=== PATIENT | female | born 1930 | race Hispanic/Latino ===

== ENCOUNTER 2017-05-27 08:58 | Inpatient (IN) | payer OTHER ==
--- OUTSIDE RECORDS SUMMARY | 2017-05-27 09:00 | XMS REPORT | Clinical Summary ---
:1930 Author Organization [facility] Address [address] [place] [id number] Care Team Providers Name Role Phone Asked, No Pcp Primary Care Provider Unavailable Allergies Not on File Current Medications Prescription Sig. Disp. Refills Start Date End Date Status traMADol (ULTRAM) Take 1 tablet 40 tablet 0 11/17/2016 11/27/2016 50 mg tablet (50 mg total) by mouth every 6 (six) hours as needed for moderate pain for up to 10 days. zolpidem (AMBIEN) Take 0.5 40 tablet 0 11/17/2016 12/22/2016 Discontinued 10 mg tablet tablets (5 mg total) by mouth nightly as needed for sleep for up to 40 days. zolpidem (AMBIEN) 5 Take 1 tablet 30 tablet 0 12/22/2016 01/21/2017 MG tablet (5 mg total) by mouth nightly as needed for sleep for up to 30 days. Active Problems Problem Noted Date Age-related osteoporosis with current pathological fracture 12/23/2016 Thoracic compression fracture, closed, initial encounter 12/01/2016 Acute low back pain 11/18/2016 Closed displaced fracture of surgical neck of right humerus 11/18/2016 Thoracic compression fracture 11/18/2016 Encounters Date Type Specialty Care Team Description 01/17/2017 Orders Only Access Marshall Camacho MD 12/22/2016 Office Visit Orthopedic Surgery Marshall Camacho, Closed displaced fracture of surgical neck of right humerus, unspecified fracture morphology, initial encounter (Primary Dx); Thoracic compression fracture, closed, initial encounter; Age-related osteoporosis with current pathological fracture with routine healing, subsequent encounter 12/22/2016 Telephone Orthopedic Surgery Daniel, Closed compression fracture of thoracic vertebra with routine healing, subsequent encounter ( Primary Dx); CHHAYA Mi Other closed displaced fracture of proximal end of right humerus with routine healing, subsequent encounter; Physical deconditioning 12/13/2016 Telephone Orthopedic Surgery Hiwot Sanchez RN 12/13/2016 Telephone Orthopedic Surgery Shira Camacho RN 12/01/2016 Office Visit Orthopedic Surgery Marshall Camacho, Closed displaced fracture of surgical neck of right humerus, unspecified fracture morphology, initial encounter (Primary Dx); Thoracic compression fracture, closed, initial encounter; Physical deconditioning 11/17/2016 Hospital Encounter Marshall Serra MD 11/17/2016 Hospital Encounter Marshall Serra MD 11/17/2016 Hospital Encounter Marshall Serra MD 11/17/2016 Hospital Encounter Marshall Serra MD 11/17/2016 Hospital Encounter Marshall Serra MD 11/17/2016 Hospital Encounter Marshall Serra MD 11/17/2016 Hospital Encounter Marshall Serra MD 11/17/2016 Office Visit Orthopedic Surgery Marshall Camacho, Acute low back pain, unspecified back pain laterality, with sciatica presence unspecified ( Primary Dx); Closed displaced fracture of surgical neck of right humerus, unspecified fracture morphology, initial encounter; Thoracic compression fracture, closed, initial encounter 11/17/2016 Ancillary Orders Marshall Serra MD 11/17/2016 Documentation Orthopedic Surgery Trinidad Weiner LPN after 05/26/2016 Social History Tobacco Use Types Packs/Day Years Used Date Never Assessed Sex Assigned at Date Recorded Not on file Last Filed Vital Signs Vital Sign Reading Time Taken Blood Pressure - - Pulse - - Temperature - - Respiratory Rate - - Oxygen Saturation - - Inhaled Oxygen Concentration - - Weight 33.3 kg (73 lb 8 oz) 11/17/2016 3:06 PM CDT Height 147.3 cm (4' 10") 11/17/2016 3:06 PM CDT Body Mass Index 15.36 11/17/2016 3:06 PM CDT Plan of Treatment Health Maintenance Due Date Last Done Comments ZOSTER VACCINE 1990 PNEUMOCOCCAL POLYSACCHARIDE VACCINE AGE 65 AND OVER 07/06/1995 PNEUMOCOCCAL-13 07/06/1995 INFLUENZA VACCINE 09/28/2016 Results Miscellaneous Imaging Result (01/17/2017) Specimen Performing Laboratory Blood XR Spine External Study (11/08/2016 6:25 AM) Specimen Performing Laboratory [facility] [address] [place] [address] Narrative This exam was not acquired at a [facility] facility and has not been interpreted by a [facility] Provider.The exam was imported into our imaging system for comparisons purposes. CT Spine External Study (11/07/2016 5:16 PM)Only the most recent of3 resultswithin the time period is included. Specimen Performing Laboratory [facility] [address] [place] [address] Narrative This exam was not acquired at a [facility] facility and has not been interpreted by a [facility] Provider.The exam was imported into our imaging system for comparisons purposes. XR Upper Extremity External Study (11/07/2016 3:28 PM)Only the most recent of2 resultswithin the time period is included. Specimen Performing Laboratory [facility] [address] [place] [address] Narrative This exam was not acquired at a [facility] facility and has not been interpreted by a [facility] Provider.The exam was imported into our imaging system for comparisons purposes. XR Chest External Study (11/07/2016 3:28 PM) Specimen Performing Laboratory [facility] [address] [place] [address] Narrative This exam was not acquired at a [facility] facility and has not been interpreted by a [facility] Provider.The exam was imported into our imaging system for comparisons purposes. after 05/26/2016 Insurance Payer Benefit Plan / Group Subscriber ID Type Phone Address MEDICARE MEDICARE PART A AND B xxxxxxxxxx Medicare [place], [place] [employer] SUPPLEMENT xxxxxxxxxxxx Commercial [phone] [address]
[2017-05-27 09:39] LABS: Absolute Lymphocytes (CBC) 3.9 K/uL (0.7-4.9); Absolute Monocytes 0.8 K/uL (0.1-1.3); Absolute Neutrophil 5.5 K/uL (1.8-8.0); Basophils % 0.8 % (0-1.3); Eosinophils % 5.1 % (0-4.4); Hematocrit 31.9 % (36.0-45.0); Lymphocytes % 35.8 % (15.3-44.8); MCH 27.3 pg (27.0-35.0); MCV 81.9 fL (80-100); MPV 7.9 fL (7.6-11.3); Monocytes % 7.3 % (3.3-12.3)
--- NOTE | 2017-05-27 09:41 | RAD REPORT ---
EXAM DESCRIPTION: CT - CTHCSPWOC - 05/27/2017 9:28 am CLINICAL HISTORY: Syncope, fall, head and neck injury COMPARISON: CT head and neck October 2016 TECHNIQUE: Axial 5 mm thick images of the head were obtained. Axial 2 mm thick images of the cervic al spine were obtained with sagittal and coronal reconstruction images generated and reviewed. All CT scans are performed using dose optimization technique as appropriate and may include automated exposure control or mA/KV adjustment according to patient size. FINDINGS: No intracranial hemorrhage, mass, edema or acute intracranial finding. No acute cortical based infarc tion. Advanced atrophy and chronic ischemic changes are present. Ventricular size is in proportion. A rterial and physiologic calcifications are present. No extra-axial fluid collections. Mastoid air ric ls are clear. Chronic right-sided sphenoid sinusitis stable from prior imaging. Remaining paranasal s inuses as imaged are unremarkable. No globe or orbit abnormality seen. Cervical bodies are normal in height. There is a slight retrolisthesis of C4 relative to C2 and C3. M ild facet joint degenerative changes are present. No pathologic or posttraumatic etiology for the sub luxation. C4-5 disc space narrowing is present. No other significant disc space narrowing. No fractur e or acute bony abnormality. Central canal detail is inherently limited. No paraspinal mass or hematoma. IMPRESSION: Patient has advanced atrophy and chronic ischemic change similar to the prior study. No acute intracranial finding. Mild for age cervical spine degenerative change with no acute finding. Central canal detail is inhere ntly limited. Chronic sphenoid sinusitis.
[2017-05-27 09:44] LABS: Protime INR 1.08
[2017-05-27 09:58] LABS: Potassium 4.4 mEq/L (3.6-5.0)
[2017-05-27 10:04] LABS: Albumin 3.7 g/dL (3.2-5.5); Bilirubin Direct 0.1 mg/dL (0-0.2); Bilirubin Total 0.5 mg/dL (0.3-1.2); Magnesium 2.3 mg/dL (1.8-2.5); Protein, Total 7.3 g/dL (6.0-8.3)
--- NOTE | 2017-05-27 10:30 | RAD REPORT ---
EXAM DESCRIPTION: RAD - Chest Single View - 05/27/2017 10:05 am CLINICAL HISTORY: Syncope, shortness of breath COMPARISON: October 2016 TECHNIQUE: AP portable chest image was obtained 0914 hours . FINDINGS: Fibrotic lung pattern is stable. No failure, infiltrate or acute lung parenchymal process. Heart and vasculature are normal. No measurable pleural effusion and no pneumothorax. No acute bone finding. Old trauma changes to the proximal right humerus noted. Surgical clips are seen in the right axilla. No acute aortic findings suspected. IMPRESSION: No acute cardiopulmonary process. Fibrotic lung pattern is stable from comparison.
--- NOTE | 2017-05-27 11:43 | ER ---
Nurse's Notes [facility] Name: Salud Hooks Age: 86 yrs Sex: Female : 1930 Arrival Date: 05/27/2017 Time: 09:04 Bed 4 Private MD: Diagnosis: Syncope and collapse;Weakness;Medication Non-Compliance Presentation: 05/27 09:05 Presenting complaint: EMS states: Home Health nurse reports that pt had syncopal ph episode in restroom lasting approx 2 min. BP 98 systolic for EMS, pt denies pain or injury r/t fall, 12 lead EKG normal, dried blood noted to pt's face, pt reports that it is from nose bleed. Transition of care: patient was not received from another setting of care. Onset of symptoms was May 27, 2017. Care prior to arrival: None. 09:05 Method Of Arrival: EMS: [facility] ph 09:05 Acuity: KODAK 3 ph Historical: - Allergies: 09:10 Ferrous Sulfate; ph 09:10 Opioids - Morphine Analogues; ph 09:10 Opioids-Meperidine \T\ Related; ph 09:10 Opioids-Methadone \T\ Related; ph 09:10 Nefazodone; ph 09:10 Propoxyphene HCl; ph 09:10 Trazodone; ph - Home Meds: 09:10 amlodipine 2.5 mg tab 1 tab once daily [Active]; doxepin 50 mg Oral cap 1 cap once ph daily [Active]; levothyroxine 100 mcg tab once daily [Active]; lorazepam 1 mg Oral tab 1 1TO 2 TABS as needed [Active]; losartan 50 mg Oral tab 1 tab once daily [Active]; metoprolol succinate 50 mg Oral Tb24 twice a day [Active]; [place] 5-325 mg Oral tab twice a day [Active]; pantoprazole 40 mg Oral TbEC 1 tab once daily [Active]; paroxetine HCl 40 mg Oral tab 1 tab once daily [Active]; Tylenol #3 Oral [Active]; - PMHx: 09:10 Cancer, Breast; GERD; Hypertension; Hypothyroidism; ph - Immunization history:: Adult Immunizations unknown. - Social history:: Smoking status: Patient/guardian denies using tobacco. Screenin:11 Abuse screen: Denies threats or abuse. Denies injuries from another. Nutritional ph screening: No deficits noted. Tuberculosis screening: No symptoms or risk factors identified. Fall Risk Fall in past 12 months (25 points). No secondary diagnosis (0 pts). IV access (20 points). Ambulatory Aid- None/Bed Rest/Nurse Assist (0 pts). Gait- Weak (10 pts.). Mental Status- Oriented to own ability (0 pts). Total Gutierrez Fall Scale indicates High Risk Score (45 or more points). Fall prevention measures have been instituted. Side Rails Up X 2 Placed Close to Nursing Station Frequent Obs/Assessments Occuring As available patient and family educated on Fall Prevention Program and Strategies. Assessment: 09:12 General: Appears in no apparent distress. comfortable, slender, Behavior is calm, ph cooperative, appropriate for age, Denies fever, feeling ill. Pain: Denies pain. Neuro: Level of Consciousness is awake, alert, obeys commands, Oriented to person, place, situation, Speech is normal, Pupils are PERRLA. Cardiovascular: Reports lightheadedness, syncope, Denies chest pain, shortness of breath, Capillary refill < 3 seconds Patient's skin is warm and dry. Respiratory: Airway is patent Respiratory effort is even, unlabored, Respiratory pattern is regular, symmetrical. Derm: Skin is fragile, is thin, Skin is pink, warm \T\ dry. Musculoskeletal: Circulation, motion, and sensation intact. Range of motion: intact in all extremities. 09:47 Reassessment: Patient appears in no apparent distress at this time. Neuro: Level of la1 Consciousness is awake, alert, obeys commands, Oriented to person, place, situation. Cardiovascular: Heart tones S1 S2 present Rhythm is sinus rhythm. GI: No signs and/or symptoms were reported involving the gastrointestinal system. : No signs and/or symptoms were reported regarding the genitourinary system. 11:00 Reassessment: Patient appears in no apparent distress at this time. No changes from la1 previously documented assessment. Patient and/or family updated on plan of care and expected duration. Pain level reassessed. 12:46 Reassessment:. la1 Vital Signs: 09:08 BP 159 / 95; Pulse 88; Resp 18; Temp 97.3; Pulse Ox 100% on R/A; Weight 43.09 kg; Pain ph 0/10; 09:47 BP 115 / 87; Pulse 76; Resp 16; Pulse Ox 98% on R/A; la1 10:49 BP 130 / 101; Pulse 83; Resp 20; Pulse Ox 98% on R/A; la1 11:27 BP 108 / 76; Pulse 80; Resp 16; Pulse Ox 95% on R/A; la1 12:23 BP 129 / 63; Pulse 86; Resp 19; Pulse Ox 100% on R/A; la1 ED Course: 09:04 Patient arrived in ED. ph 09:05 Evan Calderon MD is Attending Physician. kdr 09:07 Triage completed. ph 09:12 Arm band placed on. ph 09:12 Patient has correct armband on for positive identification. Placed in gown. Bed in low ph position. Call light in reach. Side rails up X 1. surveillance monitor on. Pulse ox on. NIBP on. Warm blanket given. 09:14 Inserted saline lock: 22 gauge in left antecubital area, using aseptic technique. ph 09:27 CT Head C Spine In Process Unspecified. EDMS 09:46 William Bowles, RN is Primary Nurse. la1 09:52 EKG done, by aircraft electronics technical officer. reviewed by Evan Calderon MD. at1 10:05 XRAY Chest (1 view) In Process Unspecified. EDMS 11:24 Alberto Walton MD is Hospitalizing Provider. kdr 12:46 No provider procedures requiring assistance completed. Patient admitted, IV remains in la1 place. Administered Medications: No medications were administered Outcome: 11:42 Decision to Hospitalize by Provider. kdr 12:46 Admitted to Tele accompanied by tech, via stretcher, room 421, with chart, Report la1 called to Denzel 12:46 Condition: stable 12:46 Instructed on the need for admit. 12:49 Patient left the ED. la1 Signatures: Dispatcher [employer] EDMS Evan Calderon MD MD kdr Kristine rossi, railroad wheels and axles inspector EKG Tat1 William Bowles, CHHAYA RN la1 Xiomara Young RN RN ph Corrections: (The following items were deleted from the chart) 12:08 09:12 Neuro: Level of Consciousness is awake, alert, obeys commands, Oriented to ph person, place, time, situation, Speech is normal, Pupils are PERRLA, ph
--- NOTE | 2017-05-27 11:43 | EDPHYS ---
Physician Documentation [facility] Name: Salud Hooks Age: 86 yrs Sex: Female : 1930 Arrival Date: 05/27/2017 Time: 09:04 Bed 4 Private MD: ED Physician Evan Calderon HPI: 05/27 15:50 This 86 yrs old Female presents to ER via EMS with complaints of Syncope. kdr 15:50 The patient has experienced syncope, became unresponsive, collapsed. Onset: The kdr symptoms/episode began/occurred suddenly, just prior to arrival. Duration: This was a single episode, that lasted 2 minute(s). Context: the episode(s) was witnessed, by a friend, occurred occurred while the patient was Sitting on toilet. Associated injury: The patient did not suffer any apparent associated injury. Associated signs and symptoms: The patient has no apparent associated signs or symptoms. Current symptoms: Currently, the patient is not experiencing any symptoms. It is unknown whether or not the patient has had similar symptoms in the past. The patient has not recently seen a physician. The patient is reported by caregiver to have periods of weakness and near syncope. It is thought that she may be getting up at night and taking her medications as the family reports that the patient is consuming her medications faster than what would be anticipated given the orders. Historical: - Allergies: 09:10 Ferrous Sulfate; ph 09:10 Opioids - Morphine Analogues; ph 09:10 Opioids-Meperidine \T\ Related; ph 09:10 Opioids-Methadone \T\ Related; ph 09:10 Nefazodone; ph 09:10 Propoxyphene HCl; ph 09:10 Trazodone; ph - Home Meds: 09:10 amlodipine 2.5 mg tab 1 tab once daily [Active]; doxepin 50 mg Oral cap 1 cap once ph daily [Active]; levothyroxine 100 mcg tab once daily [Active]; lorazepam 1 mg Oral tab 1 1TO 2 TABS as needed [Active]; losartan 50 mg Oral tab 1 tab once daily [Active]; metoprolol succinate 50 mg Oral Tb24 twice a day [Active]; [place] 5-325 mg Oral tab twice a day [Active]; pantoprazole 40 mg Oral TbEC 1 tab once daily [Active]; paroxetine HCl 40 mg Oral tab 1 tab once daily [Active]; Tylenol #3 Oral [Active]; - PMHx: 09:10 Cancer, Breast; GERD; Hypertension; Hypothyroidism; ph - Immunization history:: Adult Immunizations unknown. - Social history:: Smoking status: Patient/guardian denies using tobacco. ROS: 15:50 Constitutional: Negative for fever, chills, and weight loss, Eyes: Negative for injury, kdr pain, redness, and discharge, Neck: Negative for injury, pain, and swelling, Cardiovascular: Negative for chest pain, palpitations, and edema, Respiratory: Negative for shortness of breath, cough, wheezing, and pleuritic chest pain, Abdomen/GI: Negative for abdominal pain, nausea, vomiting, diarrhea, and constipation, Back: Negative for injury and pain, MS/Extremity: Negative for injury and deformity, Skin: Negative for injury, rash, and discoloration, Neuro: Negative for headache, weakness, numbness, tingling, and seizure activity. Psych: Negative for depression, anxiety, suicide ideation, homicidal ideation, and hallucinations, Allergy/Immunology: Negative for hives, rash, and allergies, Endocrine: Negative for neck swelling, polydipsia, polyuria, polyphagia, and marked weight changes, Hematologic/Lymphatic: Negative for swollen nodes, abnormal bleeding, and unusual bruising. 15:50 ENT: Positive for nose bleed, There is blood around her mouth and nose. Exam: 15:50 Constitutional: This is a well developed, well nourished patient who is awake, alert, kdr and in no acute distress. She is frail appearing and mildly malnourished. Head/Face: Normocephalic, atraumatic. Eyes: Pupils equal round and reactive to light, extra-ocular motions intact. Lids and lashes normal. Conjunctiva and sclera are non-icteric and not injected. Cornea within normal limits. Periorbital areas with no swelling, redness, or edema. Neck: Trachea midline, no thyromegaly or masses palpated, and no cervical lymphadenopathy. Supple, full range of motion without nuchal rigidity, or vertebral point tenderness. No Meningismus. Chest/axilla: Normal chest wall appearance and motion. Nontender with no deformity. No lesions are appreciated. Cardiovascular: Regular rate and rhythm with a normal S1 and S2. No gallops, murmurs, or rubs. Normal PMI, no JVD. No pulse deficits. Respiratory: Lungs have equal breath sounds bilaterally, clear to auscultation and percussion. No rales, rhonchi or wheezes noted. No increased work of breathing, no retractions or nasal flaring. Abdomen/GI: Soft, non-tender, with normal bowel sounds. No distension or tympany. No guarding or rebound. No evidence of tenderness throughout. Back: No spinal tenderness. No costovertebral tenderness. Full range of motion. Skin: Warm, dry with normal turgor. Normal color with no rashes, no lesions, and no evidence of cellulitis. MS/ Extremity: Pulses equal, no cyanosis. Neurovascular intact. Full, normal range of motion. Neuro: Awake and alert, GCS 15, oriented to person, place, time, and situation. Cranial nerves II-XII grossly intact. Motor strength 5/5 in all extremities. Sensory grossly intact. Cerebellar exam grossly normal. Psych: Awake, alert, with orientation to person, place and time. Behavior, mood, and affect are within normal limits. Vital Signs: 09:08 BP 159 / 95; Pulse 88; Resp 18; Temp 97.3; Pulse Ox 100% on R/A; Weight 43.09 kg; Pain ph 0/10; 09:47 BP 115 / 87; Pulse 76; Resp 16; Pulse Ox 98% on R/A; la1 10:49 BP 130 / 101; Pulse 83; Resp 20; Pulse Ox 98% on R/A; la1 11:27 BP 108 / 76; Pulse 80; Resp 16; Pulse Ox 95% on R/A; la1 12:23 BP 129 / 63; Pulse 86; Resp 19; Pulse Ox 100% on R/A; la1 MDM: 11:42 Patient medically screened. kdr 15:50 Data reviewed: vital signs, nurses notes, lab test result(s), EKG, radiologic studies. kdr Counseling: I had a detailed discussion with the patient and/or guardian regarding: the historical points, exam findings, and any diagnostic results supporting the discharge/admit diagnosis, lab results, radiology results, the need for further work-up and treatment in the hospital. Physician consultation: Alberto Walton MD. 05/27 09:06 Order name: LFT's; Complete Time: 11:21 kdr 05/27 09:06 Order name: Basic Metabolic Panel; Complete Time: 11: kdr 05/27 09:06 Order name: BNP; Complete Time: 11: kdr 05/27 09:06 Order name: CBC with Diff; Complete Time: 11: kdr 05/27 09:06 Order name: Magnesium; Complete Time: 11: kdr 05/27 09:06 Order name: PT-INR; Complete Time: 11: kdr 05/27 09:06 Order name: Ptt, Activated; Complete Time: : kdr 05/27 09:06 Order name: Troponin (emerg Dept Use Only); Complete Time: 11: kdr 05/27 09:06 Order name: XRAY Chest (1 view); Complete Time: : kdr 05/27 09:06 Order name: EKG; Complete Time: 09: kdr 05/27 09:06 Order name: Cardiac monitoring; Complete Time: 09: kdr 05/27 09:06 Order name: EKG - Nurse/Tech; Complete Time: : [facility] 05/27 09:06 Order name: IV Saline Lock; Complete Time: : kdr 05/27 09:06 Order name: CT Head C Spine; Complete Time: 11: kdr 05/27 09:06 Order name: Labs collected and sent; Complete Time: : kdr 05/27 09:06 Order name: O2 Per Protocol; Complete Time: : kdr 05/27 09:06 Order name: O2 Sat Monitoring; Complete Time: 09:14 kdr Administered Medications: No medications were administered Disposition: 05/27/17 11:42 Hospitalization ordered by Alberto Walton for Observation. Preliminary diagnosis are Syncope and collapse, Weakness, Medication Non-Compliance. - Bed requested for Telemetry/MedSurg (observation). - Status is Observation. la1 - Condition is Fair. - Problem is new. - Symptoms have improved. UTI on Admission? Yes Signatures: Dispatcher [employer] Sweetie Ying RN CHHAYA Evan Calderon MD MD [facility] William Bowles RN RN la1 Xiomara Young RN RN ph
[2017-05-27] MEDS ORDERED: ACETAMINOPHEN 500 MG TAB PO PRN (12:09)
[2017-05-27] MEDS: NA CHLORIDE 0.9% 1,000 ML IV SCH ×2 (13:14→23:00)
[2017-05-27 13:37] VITALS: BMI 19.1
[2017-05-27] MEDS ORDERED: HYDROCODONE/APAP 5/325 MG TAB PO PRN (14:23)
--- NOTE | 2017-05-27 17:12 | RAD REPORT ---
EXAM DESCRIPTION: ARLIN - CP - 05/27/2017 5:01 pm CLINICAL HISTORY: Syncope COMPARISON: None. TECHNIQUE: Real-time sonographic evaluation of both carotid systems was performed. Doppler interroga tion was performed with waveform tracing bilaterally. FINDINGS: Normal high resistance waveforms are noted in both external carotid arteries. The common c arotid arteries and internal carotid arteries show normal low resistance waveforms. Mild mixed plaque formation is seen in both proximal ICAs. Peak systolic and end diastolic velocity v alues and the ICA/CCA ratios are in the non-hemodynamically significant range. Antegrade flow seen in both vertebral arteries. IMPRESSION: Mild mixed plaquing is present in both proximal ICAs. No evidence of a hemodynamically significant stenosis.
[2017-05-27 20:32] LABS: Urine Appearance CLOUDY; Urine Bilirubin NEGATIVE (NEG); Urine Blood 3+ (NEG); Urine Color YELLOW; Urine Glucose NEGATIVE (NEG); Urine Protein TRACE (NEG); Urine Urobilinogen 0.2 mg/dL (0.2-1.0)
[2017-05-27 20:41] LABS: Urine Microscopic Reflex ORDER UMIC
[2017-05-27 20:59] LABS: Urine Amorphous Sediment 1+ /HPF (NONE SEEN); Urine Bacteria >50 /HPF (<20); Urine Culture Reflex Order REFLEXED; Urine Mucus 1+ /HPF (NONE SEEN); Urine RBC >50 /HPF (NONE SEEN)
[2017-05-27] MEDS: METOPROLOL TAR 50 MG TAB PO SCH (21:39)
--- NOTE | 2017-05-27 22:45 | HP ---
Date of Admission: 05/27/2017 Chief Complaint: Syncopal episode. Code Status: DNR. Primary Care Physician: Dr. Ye. History Of Present Illness: The patient is an 86-year-old female with past medical history of hypothyroidism, gastroesophageal reflux disease, history of breast cancer, anxiety, hypertension, who was in her usual state of health until the day prior to admission when the patient noticed significant epistaxis after her home health care nurse had left for the day. The patient denies any dizziness or lightheadedness. The patient was found this morning by her home health care worker to have nosebleed with blood on the sheets. The patient contacted 911 and the patient was found to have a syncopal episode while using the restroom. The patient was in the presence of a caregiver and therefore did not have any fall, did not hit her head. The patient's syncopal episode lasted only for a few seconds. There was no seizure-type activity. The patient has not had a recurrent nosebleed since the day prior to admission. The patient's symptoms are constant, moderate, and progressively worsening. She does not take any blood thinners. The son reports that she has been taking her blood pressure medication perhaps more than usual and is somewhat confused. Also reports a 20 pounds weight loss over the past couple of years. The patient also has decreased appetite contributing to her symptoms. Upon arrival to the ER, her vital signs were stable. She was afebrile. Her workup reveals a normal white count, slightly elevated creatinine. Hemoglobin was 10.6, which is around her baseline. The patient was referred for admission. When seen in the ER, she was awake, alert, oriented x3, in some mild distress. Past Medical History: Hypertension, anxiety disorder, history of breast cancer , gastroesophageal reflux disease, and hypothyroidism. Past Surgical History: Appendectomy, partial stomach removal for ulcers. Medications: Reviewed. Allergies: TO NEFAZODONE CAUSES NAUSEA, VOMITING. MORPHINE CAUSES NAUSEA, VOMITING. OPIOIDS AND MEPERIDINE, NAUSEA AND VOMITING. METHADONE, NAUSEA AND VOMITING. PROPOXYPHENE, TRAZODONE ALSO CAUSE NAUSEA AND VOMITING. FERROUS SULFATE CAUSES RASH. Social History: The patient lives alone, does have home health care. The patient is , has good social support. Has a son. The patient denies any smoking, alcohol use, or illicit drug use. Family History: Noncontributory in this 86-year-old female. Review of Systems: An 11-point system reviewed, negative except as per HPI. Physical Examination: Vital Signs: Temperature 97.3, heart rate 88, blood pressure 159/95, respirations 18, O2 100% on room air. General: Awake, alert, oriented x3, in some mild distress, ill-appearing elderly female, cachectic. HEENT: Normocephalic and atraumatic. PERRLA. EOMI. Oropharynx has some dried blood on the lips. Oropharynx is clear. Dentition is poor. Conjunctiva anicteric. Nares also have some drying blood. No swollen turbinates. Neck: Supple. No JVD. Trachea midline. CV: S1, S2. Regular rate and rhythm. Peripheral pulses are present bilaterally. No murmurs. Respiratory: Clear to auscultation bilaterally. No wheezing. No stridor. No use of accessory muscles. Gastrointestinal: Abdomen is soft, nontender, nondistended. Positive bowel sounds. No guarding or rigidity. No palpable masses. Extremities: No clubbing, cyanosis, or edema. No calf tenderness. Neuro: Cranial nerves 2 through 12 intact grossly. A 5/5 bilateral upper and lower extremity strength. Sensation intact to light touch. Speech is normal. Skin: No rashes. Normal skin turgor. Psych: Mood is okay. Affect is full. Insight and judgment are fair. Laboratory Data: WBC 10.8, H and H 10.6 and 31.9, platelets 329, neutrophils 51 %. INR 1.08. Sodium 139, potassium 4.4, chloride 113, CO2 22, BUN 37, creatinine 1.3, glucose 157, calcium 9.1, magnesium 2.3. BNP 336. Troponin less than 0.03. Albumin 3.7. Imaging: Chest x-ray shows no acute cardiopulmonary process. Fibrotic lung pattern is stable from comparison. CT of head and neck, cervical spine shows advanced atrophy and chronic ischemic changes similar to prior study. No acute intracranial finding, mild for age. Cervical spine, degenerative change with no acute findings. Central canal detail is inherently limited. Chronic sphenoid sinusitis. Assessment And Plan: An 86-year-old female with; 1. Syncopal episode, likely vasovagal. We will obtain orthostatic vital signs , carotid ultrasound. We will place on fall precautions. We will obtain a physical therapy evaluation. 2. Epistaxis, unclear etiology. The patient is not on any blood thinners. No recent trauma. 3. Essential hypertension. The patient has been taking her medications more than prescribed due to confusion. We will monitor blood pressure closely. 4. Generalized anxiety disorder, stable. 5. History of breast cancer. 6. Gastroesophageal reflux disease. Continue PPI. 7. Hypothyroidism. We will check TSH and continue on thyroid replacement. 8. Failure to thrive. The patient is cachectic appearing, has lost 20 pounds over the past couple of years. Has a poor appetite. We will order nutrition and dietary consult. We will supplement with protein shakes. 9. Gastrointestinal and deep venous thrombosis prophylaxis with PPI and SCDs. No chemical anticoagulation due to bleed. Plan: Admit the patient to Med-Surg, place as observation. We will attempt to consult ENT if available. Patient does have medical power of title attorney and living will JASON Voice ID: [id number] TIERRA
[2017-05-28] MEDS: LEVOTHYROXINE SOD 0.1 MG TAB PO SCH (05:34)
[2017-05-28] MEDS ORDERED: PANTOPRAZOLE 40MG TABLET PO SCH ×2 (06:30→09:00)
[2017-05-28 06:32] LABS: Absolute Lymphocytes (CBC) 2.8 K/uL (0.7-4.9); Absolute Monocytes 0.5 K/uL (0.1-1.3); Absolute Neutrophil 4.8 K/uL (1.8-8.0); Basophils % 0.8 % (0-1.3); Eosinophils % 5.4 % (0-4.4); Hematocrit 30.2 % (36.0-45.0); Lymphocytes % 32.9 % (15.3-44.8); MCH 26.9 pg (27.0-35.0); Monocytes % 5.6 % (3.3-12.3); RBC Red Blood Cell Count 3.63 M/uL (3.86-4.86)
[2017-05-28 07:23] LABS: Albumin 3.6 g/dL (3.2-5.5); Bilirubin Total 0.5 mg/dL (0.3-1.2); Potassium 4.2 mEq/L (3.6-5.0); Protein, Total 6.8 g/dL (6.0-8.3)
[2017-05-28] MEDS: AMLODIPINE 2.5 MG TAB PO SCH (08:10)
[2017-05-28] MEDS: METOPROLOL TAR 50 MG TAB PO SCH ×2 (08:10→20:11)
[2017-05-28] MEDS: PARoxetine HCl 10 MG TAB PO SCH (08:42)
[2017-05-28] MEDS ORDERED: LOSARTAN POTASSIUM 50 MG TABLET PO SCH (09:00)
[2017-05-28] MEDS: NA CHLORIDE 0.9% 1,000 ML IV SCH ×2 (09:00→19:57)
[2017-05-28] MEDS ORDERED: levoFLOXacin 500 MG TAB PO ONE (09:00)
--- NOTE | 2017-05-28 11:37 | PN ---
Date of Progress Note: 05/28/2017 Subjective: The patient seen and examined, chart reviewed, and case discussed with RN. The patient awaiting bedside scope by Dr. Vazquez. No further nose bleeding or syncopal episode. Review of Systems: Negative except as above. Medications: Reviewed. Physical Examination: Vital Signs: Temperature 98.2, heart rate 82, blood pressure 100/57, respirations 18, and O2 99% on room air. General: awake, alert, oriented x3, not in any acute distress. Elderly female, cachectic. BMI 19. CV: S1, S2. Peripheral pulses present bilaterally. Regular rate and rhythm. Respiratory: Moving air well bilaterally. No wheezing. Abdomen: Soft, nontender, nondistended. Positive bowel sounds. Extremities: No clubbing, cyanosis, or edema. Skin: Multiple ecchymoses. Neurologic: Nonfocal. HEENT: No swollen turbinates. Some dried blood in the nares. No active signs of bleeding. Orophar ynx is clear. Laboratory Data: Sodium 139, potassium 4.2, chloride 110, CO2 19, BUN 33, creatinine 1.11, glucose 9 8, and calcium 9.2. WBC 8.6, H and H 9.8, 30.2, and platelets 273. Urine culture shows 4+ gram-nega tive rods. Carotid artery ultrasound shows mild mixed plaquing present in both proximal ICAs. No ev idence of hemodynamically significant stenosis. Assessment And Plan: An 86-year-old female with; 1.Syncopal episode, likely vasovagal. We will check orthostatic vital signs. Carotid ultrasound ne gative. Continue fall precautions and initiate physical therapy. 2.Epistaxis, unclear etiology. Appreciate Dr. Vazquez's input. Plan is for a tentative scope this morning. 3.Essential hypertension. Blood pressure improved, however, again low this morning. We will hold b lood pressure medications for now and we will adjust home meds prior to discharge. 4.Generalized anxiety disorder. 5.Gastroesophageal reflux disease. Continue PPI. 6.Hypothyroidism. Continue thyroid replacement. 7.Malnutrition and failure to thrive. The patient has recent weight loss and body mass index is 19. Dietary consult, protein supplements. 8.History of breast cancer. 9.Gastrointestinal and deep venous thrombosis prophylaxis, PPI and SCDs. No chemical anticoagulatio n due to bleed. SA/MODL Voice ID: [id number] Report ID: [id number]
[2017-05-28] MEDS: ONDANSETRON 4 MG/2 ML VIAL IV PRN (12:46)
[2017-05-28 13:05] LABS: Hematocrit 26.6 % (36.0-45.0)
[2017-05-28 13:10] LABS: Protime INR 1.03
--- NOTE | 2017-05-28 15:54 | RAD REPORT ---
EXAM DESCRIPTION: CT - Chest Abdomen Pelvis W Cont - 05/28/2017 3:37 pm CLINICAL HISTORY: Chest and abdomen pain. Hemoptysis. GI bleeding. COMPARISON: None. TECHNIQUE All CT scans are performed using dose optimization technique as appropriate and may includ e automated exposure control or mA/KV adjustment according to patient size. FINDINGS: There are linear areas of subsegmental atelectasis in both lung bases. No focal infiltrate worrisome for pneumonia is seen.No pleural or pericardial effusion.No intrathoracic adenopathy. The liver contains multiple rounded low-density lesions most likely representing benign cysts. The ga llbladder appears surgically absent. The spleen, adrenal glands and kidneys are within normal limits. Mild pancreatic atrophy seen. No bowel obstruction, free air, free fluid or abscess. Mild thickening of the rectosigmoid mucosa is present. No pneumatosis. The appendix is not identified as a discrete structure, however, no secondar y findings of appendicitis are identified. 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 No aggressive bone lesion. Urinary bladder demonstrates mild wall thickening in a tiny air bubble, suggesting cystitis. IMPRESSION: Mild thickening of the rectosigmoid mucosa could indicate colitis. No pneumatosis is see n. Urinary bladder wall thickening is seen with a tiny air bubble present, suggesting cystitis.
[2017-05-28] MEDS: LACTOBACILLUS/ACIDOPHILUS TAB PO SCH (18:27)
[2017-05-28] MEDS: METRONIDAZOLE 500mg IVPB 500 MG/100 ML BAG IV SCH (19:58)
[2017-05-28 20:00] LABS: Hematocrit 24.4 % (36.0-45.0)
[2017-05-28] MEDS: PANTOPRAZOLE INJ 80 MG in NA CHLORIDE 0.9% 250 ML IV SCH (20:11)
[2017-05-28] MEDS: TEMAZEPAM 15 MG CAP PO PRN (22:15)
--- NOTE | 2017-05-28 23:08 | P.PN ---
Date of Service: 05/28/17 Spoke with patient and she is refusing any further intervention. She does not want any aggressive intervention. She had been dropping her Hgb and she has unknown etiology for her bleeding. She is wanting to go home in the am without further intervention. We have spoken to son to update him as well.
[2017-05-28] MEDS: VITAMIN K (ADULT) 10 MG/ML SQ SCH (23:13)
[2017-05-29] MEDS: METRONIDAZOLE 500mg IVPB 500 MG/100 ML BAG IV SCH ×3 (01:11→16:29)
[2017-05-29] MEDS ORDERED: HYDRALAZINE HCL 20 MG/ML VIAL IV ONE (03:50)
[2017-05-29] MEDS: NA CHLORIDE 0.9% 1,000 ML IV SCH ×2 (04:03→14:51)
[2017-05-29] MEDS: LEVOTHYROXINE SOD 0.1 MG TAB PO SCH (05:02)
[2017-05-29] MEDS: PANTOPRAZOLE INJ 80 MG in NA CHLORIDE 0.9% 250 ML IV SCH ×3 (05:02→22:41)
[2017-05-29 05:20] LABS: Absolute Lymphocytes (CBC) 1.7 K/uL (0.7-4.9); Absolute Monocytes 0.5 K/uL (0.1-1.3); Absolute Neutrophil 6.3 K/uL (1.8-8.0); Basophils % 0.7 % (0-1.3); Hematocrit 25.4 % (36.0-45.0); Lymphocytes % 18.5 % (15.3-44.8); MCH 27.2 pg (27.0-35.0); MPV 7.8 fL (7.6-11.3); RBC Red Blood Cell Count 3.09 M/uL (3.86-4.86)
[2017-05-29 05:31] LABS: Albumin 3.3 g/dL (3.2-5.5); Bilirubin Total 0.6 mg/dL (0.3-1.2); Protein, Total 6.3 g/dL (6.0-8.3)
--- NOTE | 2017-05-29 08:59 | P.CNS ---
Date of Consult: 05/29/17 CC: epistaxis HPI: I spoke with the son on Tuesday regarding history since patient's history is somewhat confused. She woke up early in the morning with a moderate to large amount of blood on her bed, clothes and face with history of severe nosebleed about 1 year ago. No ASA or blood thinners. PMH/PSH/Med/All/SH/ROS reviewed from chart. PE: NAD. Alert when roused from sleeping. Face AT, NC. EAC occluded with cerumen. TM not visualized. Nares patent with mildly dry mucosa and light crusting in R. OC with multiple caries, crusting on lips, large patalal torus. OP with no blood or clot, normal size tonsils for age (very small). A: Epistaxis, possible other source such as UGI bleeding. No active bleeding has been noted during hospitalization P: Nasal saline spray. Return to Dr. Vazquez's office if additional nose bleeding occurs.
[2017-05-29] MEDS: AMLODIPINE 2.5 MG TAB PO SCH ×2 (09:00→15:44)
[2017-05-29] MEDS: METOPROLOL TAR 50 MG TAB PO SCH ×3 (09:00→20:40)
[2017-05-29] MEDS: LACTOBACILLUS/ACIDOPHILUS TAB PO SCH (10:05)
[2017-05-29] MEDS: levoFLOXacin 250 MG TAB PO SCH (10:05)
[2017-05-29] MEDS: PARoxetine HCl 10 MG TAB PO SCH (10:05)
--- NOTE | 2017-05-29 12:55 | EKG ---
Test Date: 2017-05-27 Test Time: 09:40:19 Small Business Consultant: PARKER MEASUREMENT RESULTS: Intervals: Rate: 79 HI: 128 QRSD: 78 QT: 396 QTc: 454 [place]: P: HI: 128 QRS: -3 T: 78 INTERPRETIVE STATEMENTS: Normal sinus rhythm Left ventricular hypertrophy with repolarization abnormality Abnormal ECG Compared to ECG 11/04/2016 06:47:40 No significant changes Electronically Signed On 05-29-17 12:54:51 CDT by Reji Villela
[2017-05-29] MEDS: ENSURE HIGH PROTEIN 237 ML CAN PO SCH ×2 (13:31→20:39)
--- NOTE | 2017-05-29 15:35 | CON ---
Date of Consultation: 05/29/2017 Brief History Of Present Illness: The patient is an 86-year-old female who presents to the hospital with past medical history of GERD, hypothyroidism, breast cancer, anxiety, hypertension, who was in [facility] until 2 days ago when she noted significant epistaxis after her home health nurs e left for the day. She denied any dizziness or lightheadedness, but she was found the next morning on 05/27 by her home health aide to have a significant nosebleed with bright red blood on the sheets. She contacted 911, was found to have a syncopal episode while using the restroom. She was in the p resence of her caregiver during that time and did not have any fall or hit her head. It only lasts f or a few seconds and there was no seizure type activity. The patient has not had a recurrent noseble ed since the prior day of admission. She states to me that she had noted a large amount of blood mor e than she has ever seen a bright red blood coming out of her nose and her mouth. She states that sh e did not have any nausea, vomiting, or hematemesis, but noted a continuous vtob-gyhv-ysra-type blood from her nose predominantly. She did not notice any bright red blood or melenic stool up until this morning. This morning was the first episode of melenic stool; however, she states that she did swal low some of the blood during her episode of nose bleeding on the prior days. Her hemoglobin was 10.6 on admission, which was near her baseline by report. Past Medical History: Significant for hypertension, anxiety disorder, history of breast cancer, GERD , and hypothyroidism. Past Surgical History: She has had an appendectomy and a partial gastrectomy for ulcers many, many y ears ago. She cannot recall the exact date. She has never had an upper or lower endoscopy by her re port as well. Allergies: NEFAZODONE, MORPHINE, OPIOIDS, MEPERIDINE, METHADONE, PROPOXYPHENE, FERROUS SULFATE. Home Medications: Include Norvasc, Sinequan, hydrocodone, Synthroid, Ativan, Cozaar, Lopressor, Prot blayne, and Paxil. Social History: She lives alone. Does have a home health agent. She is . She has a son who helps and visits often. She denies any smoking or alcohol or recreational drug use. Family History: Noncontributory. Review of Systems: A 10-point review of systems other than HPI, denies. Physical Examination: General: At the time of my examination. She is awake, alert, and oriented. Psychiatric: She is appropriate and conversive. She is in no distress. HEENT: She is normocephalic. Her sclerae are anicteric. Her oropharynx is clear. There is no bloo d evident in her mouth or obvious external nares. Neck: Supple. No JVD. Cardiovascular: Regular rate and rhythm. Pulmonary: Clear to auscultation bilaterally. Abdomen: Soft, nontender, and nondistended. Skin: No rashes. Laboratory Data: She had a laboratory exam, which revealed a white blood cell count of 9.1, hemoglob in is 8.4 from 9.8 the previous day, her hematocrit is 25.4, her platelet count is 239. Her PT was 1 2.2, INR 1.03, PTT 27.5. Her sodium 137, potassium 4.0, chloride 114, carbon dioxide 16, BUN 22, cre atinine 0.99, glucose is 94. The remainder of her laboratory exam is essentially normal. Her urinal ysis showed greater than 50 red blood cells and greater than 50 bacteria and 3+ blood, 1+ leukocyte e sterase. She had a chest x-ray performed which is officially read as no acute cardiopulmonary proces ses. She had a CT scan of the abdomen, chest, and pelvis, which was read as mild thickening of the r ectosigmoid mucosa could indicate colitis. No pneumatosis seen. Urinary bladder wall is thickened w ith tiny air bubble present suggesting cystitis. She had a carotid artery ultrasound, which showed m ixed plaques presenting in both ICAs. No evidence of hemodynamically significant stenosis. She had a head CT, cervical spine CT performed, which showed advanced atrophy and chronic ischemic changes si milar to prior study. No acute intracranial finding, mild for age. Cervical spine degenerative hall ges. No acute findings. Central canal details inherently limited. Chronic sphenoid sinusitis. Assessment And Plan: This is an 86-year-old female who comes in with evidence of epistaxis and decre ase in her hemoglobin due to acute blood loss. 1.IV fluid hydration. 2.Blood and product resuscitation as needed. 3.I agree with Dr. Vazquez consultation. 4.The patient will likely require upper esophagogastroduodenoscopy and colonoscopy possibly during t his admission depending on her hemodynamic status as well as her hemoglobin check. 5.The patient will definitely require esophagogastroduodenoscopy/colonoscopy either as an inpatient or an outpatient in the very near future. I have explained the risks, benefits, alternatives of the above stated plan. The patient agrees to proceed as indicated. Thank you for this interesting consult. MICHAEL Voice ID: [id number] Report ID: [id number]
[2017-05-29] MEDS ORDERED: SODIUM BICARB 50 MEQ/50ML VIAL IV SCH (16:00)
--- NOTE | 2017-05-29 19:26 | PN ---
Date of Progress Note: 05/29/2017 Subjective: The patient seen and examined. Chart reviewed and case discussed with RN and Dr. Vazquez as well as Dr. Monique. The patient continues to have some black tarry stool. States that she is not feeling too well. Review of Systems: Negative except as above. Medications: Reviewed. Physical Examination: Vital Signs: Temperature 97.5, heart rate 81, blood pressure 110/69, respirations 32, O2 94% on room air. General: Awake, alert, oriented x3, in some mild distress. Elderly female, cachectic. CV: S1, S2. No murmurs. Peripheral pulses present bilaterally. Respiratory: Clear to auscultation bilaterally. No wheezing. No stridor. Gastrointestinal: Abdomen is soft, nontender, nondistended. Positive bowel sounds. Extremities: No clubbing, cyanosis, or edema. Neurologic: Nonfocal. Laboratory Data: Sodium 137, potassium 4, chloride 114, CO2 16, BUN 22, creatinine 0.99, glucose 94, calcium 8.8. WBC 9.1, H and H 8.4, 25.4, platelets 239, neutrophils 68.8%. Urine culture shows 4+ gram-negative rods. ID and sensitivity pending. CT scan abdomen and pelvis shows mild thickening of rectosigmoid mucosa, could indicate colitis. No pneumatosis seen.Urinary bladder wall thickening seen with tiny air bubble present suggesting cystitis Assessment And Plan: An 86-year-old female with. 1. Syncopal episode, likely vasovagal. Workup negative. Continue physical therapy and fall precautions. Carotid ultrasound negative. 2. Epistaxis, unclear etiology. The patient was seen by Dr. Vazquez with ENT scope to be as an outpatient if bleeding recurs. Continue nasal spray. 3. Essential hypertension. Blood pressure stable. 4. Metabolic acidosis. Bicarb 5. Generalized anxiety disorder. 6. Gastroesophageal reflux disease, PPI. 7. Hypothyroidism. Continue Synthroid. 8. Malnutrition, failure to thrive, BMI 19. We will start on some protein supplementation. 9. History of breast cancer. 10. GI bleed with melenic stools, unclear etiology may be related to GI bleed versus blood that was swallowed from epistaxis and that has been hemolyzed. GI is unavailable. We will consult Dr. Monique. The tentative plan is to monitor H and H. May need a scope in a.m. if continues to drop, transfuse as needed. 11. Acute kidney injury, resolved. Continue IV fluids. 12. Acute colitis, rectosigmoid. We will adjust IV antibiotics. Continue IV PPI. /ERNIE Voice ID: [id number] Report ID: [id number] MTDD
[2017-05-29] MEDS: TEMAZEPAM 15 MG CAP PO PRN (20:40)
[2017-05-29] MEDS: VITAMIN K (ADULT) 10 MG/ML SQ SCH (23:00)
[2017-05-30] MEDS: NA CHLORIDE 0.9% 1,000 ML IV SCH ×3 (01:36→13:29)
[2017-05-30] MEDS: METRONIDAZOLE 500mg IVPB 500 MG/100 ML BAG IV SCH ×2 (01:36→08:45)
[2017-05-30] MEDS ORDERED: HYDRALAZINE HCL 20 MG/ML VIAL IV ONE (03:38)
[2017-05-30] MEDS: LEVOTHYROXINE SOD 0.1 MG TAB PO SCH (05:57)
[2017-05-30] MEDS: ONDANSETRON 4 MG/2 ML VIAL IV PRN (06:05)
[2017-05-30 07:02] LABS: Absolute Lymphocytes (CBC) 1.2 K/uL (0.7-4.9); Absolute Monocytes 0.5 K/uL (0.1-1.3); Absolute Neutrophil 11.4 K/uL (1.8-8.0); Basophils % 0.4 % (0-1.3); Eosinophils % 1.3 % (0-4.4); Hematocrit 24.4 % (36.0-45.0); Lymphocytes % 9.3 % (15.3-44.8); MCH 26.9 pg (27.0-35.0); MCV 82.3 fL (80-100); Monocytes % 3.8 % (3.3-12.3); RBC Red Blood Cell Count 2.96 M/uL (3.86-4.86)
[2017-05-30 07:14] LABS: Albumin 3.3 g/dL (3.2-5.5); Bilirubin Total 0.8 mg/dL (0.3-1.2); Potassium 3.2 mEq/L (3.6-5.0); Protein, Total 6.1 g/dL (6.0-8.3)
[2017-05-30 07:50] LABS: Blood Morphology Comment NOTED (NOT SEEN); Ovalocytes 2+; Platelet Estimate ADEQ; Urine White Blood Cell Casts OK
[2017-05-30] MEDS: ENSURE HIGH PROTEIN 237 ML CAN PO SCH ×3 (08:20→21:00)
[2017-05-30] MEDS: PANTOPRAZOLE INJ 80 MG in NA CHLORIDE 0.9% 250 ML IV SCH ×2 (08:44→17:55)
[2017-05-30] MEDS: LACTOBACILLUS/ACIDOPHILUS TAB PO SCH (08:45)
[2017-05-30] MEDS: PARoxetine HCl 10 MG TAB PO SCH (08:45)
[2017-05-30] MEDS: levoFLOXacin 250 MG TAB PO SCH (08:45)
[2017-05-30] MEDS: METOPROLOL TAR 50 MG TAB PO SCH ×2 (08:45→21:05)
[2017-05-30] MEDS: AMLODIPINE 2.5 MG TAB PO SCH (08:46)
--- NOTE | 2017-05-30 08:58 | P.PN ---
Subjective Date of Service: 05/30/17 Subjective: No new changes (Patient has no complaints) Physical Examination - Vital Signs Temperature: 98.6 F Blood Pressure: 127/68 Pulse: 91 Respirations: 18 Pulse Ox (%): 90 - Physical Exam General: Alert, In no apparent distress, Cooperative Gastrointestinal: Soft and benign, Non-distended, No tenderness, No masses, No rebound, No guarding - Studies Microbiology Data (last 24 hrs): 05/27/17 19:30 Clean Catch Urine [place] Count - Final >100,000 CFU/ML. 05/27/17 19:30 Clean Catch Urine - Final Klebsiella Pneumoniae Escherichia Coli Assessment And Plan - Current Problems (Diagnosis) (1) Acute blood loss anemia Current Visit: Yes Status: Acute Plan: Patient Hgb continues to drift down - EGD in AM
[2017-05-30] MEDS: SOD CHLORIDE 0.65% NASAL SPRAY NAS SCH ×4 (10:30→21:05)
--- NOTE | 2017-05-30 14:33 | PN ---
Date of Progress Note: 05/30/2017 Subjective: The patient is seen and examined, chart reviewed, and case discussed with RN and Dr. Abe logan. The patient is going for EGD in a.m. The patient states that, she still has a decreased appet ite. No further nausea, vomiting. No bleeding. Review of Systems: Negative except as above. Medications: Reviewed. Physical Examination: Vital Signs: Temperature 98.6, heart rate 91, blood pressure 127/68, respirations 18, and O2 91% on room air. General: awake, alert, oriented x3. Some mild distress. Elderly female, ill-appearing, cachectic. BMI 19. CV: S1, S2. No murmurs. Regular rate and rhythm. Peripheral pulses present. Respiratory: clear to auscultation bilaterally. No wheezing. Abdomen: Soft, nontender, nondistended. Positive bowel sounds. Extremities: No clubbing, cyanosis, or edema. Neurologic: Nonfocal. Laboratory Data: Sodium 137, potassium 3.2, chloride 111, CO2 17, BUN 15, creatinine 1.02, glucose 1 31, and calcium 8.7. WBC 13.4, H and H 8/24.4, and platelets 264. Urine culture shows Klebsiella pn eumoniae and Escherichia coli, both sensitive to Rocephin. Assessment: An 86-year-old female with; 1.Syncopal episode, likely vasovagal. Continue PT, fall precautions. Workup negative. 2.Epistaxis, unclear etiology. Continue nasal spray. No further nosebleeds. Appreciate Dr. Leighton barr's input. 3.Essential hypertension, stable. 4.Metabolic acidosis. Repeat bicarb dose today. 5.Generalized anxiety disorder. 6.Gastroesophageal reflux disease, PPI. 7.Hypothyroidism, Synthroid. 8.Malnutrition, failure to thrive. Body mass index 19. Continue protein supplementation. The giovani ent continues to have decreased appetite. 9.Gastrointestinal bleed with melanotic stools. May be related to upper gastrointestinal source medina bruce swallowed hemolyzed blood from epistaxis. EGD scheduled for tomorrow by Dr. Monique. Monitor H and H. 10.History of breast cancer. 11.Acute kidney injury. Creatinine stable. Continue IV fluids. 12.Anemia, acute blood loss anemia, dropped almost 3 g. We will transfuse if close to 7. Plan, EGD in a.m. 13.Acute colitis, rectosigmoid. IV antibiotics adjusted. /ERNIE Voice ID: [id number] Report ID: [id number]
[2017-05-30] MEDS: D5W 1,000 ML with NA BICARB 8.4% 100 MEQ IV SCH ×2 (15:51)
[2017-05-30] MEDS ORDERED: PIPER/TAZO/NS 3.375gm 3.375 GM/100 ML BAG IVPB SCH (17:00)
[2017-05-30] MEDS: PIPER/TAZO/NS 2.25gm 2.25 GM/50 ML BAG IVPB SCH (17:54)
[2017-05-30] MEDS: TEMAZEPAM 15 MG CAP PO PRN (21:05)
[2017-05-30] MEDS: VITAMIN K (ADULT) 10 MG/ML SQ SCH (22:10)
[2017-05-31] MEDS: PIPER/TAZO/NS 2.25gm 2.25 GM/50 ML BAG IVPB SCH ×3 (00:17→19:25)
[2017-05-31] MEDS ORDERED: NA CHLORIDE 0.9% 100 ML ONE (00:37)
[2017-05-31] MEDS: D5W 1,000 ML with NA BICARB 8.4% 100 MEQ IV SCH ×2 (04:40)
[2017-05-31] MEDS: PANTOPRAZOLE INJ 80 MG in NA CHLORIDE 0.9% 250 ML IV SCH ×2 (05:04→14:38)
[2017-05-31] MEDS: LEVOTHYROXINE SOD 0.1 MG TAB PO SCH (05:04)
[2017-05-31] MEDS: METOPROLOL TAR 50 MG TAB PO SCH ×2 (05:04→20:29)
[2017-05-31 06:34] LABS: Absolute Lymphocytes (CBC) 1.2 K/uL (0.7-4.9); Absolute Monocytes 0.7 K/uL (0.1-1.3); Absolute Neutrophil 8.3 K/uL (1.8-8.0); Basophils % 0.5 % (0-1.3); Eosinophils % 1.7 % (0-4.4); Hematocrit 28.4 % (36.0-45.0); Lymphocytes % 11.3 % (15.3-44.8); MCH 27.8 pg (27.0-35.0); MPV 7.7 fL (7.6-11.3); Monocytes % 7.1 % (3.3-12.3); RBC Red Blood Cell Count 3.47 M/uL (3.86-4.86)
[2017-05-31 06:43] LABS: Albumin 3.5 g/dL (3.2-5.5); Bilirubin Total 1.6 mg/dL (0.3-1.2); Protein, Total 6.5 g/dL (6.0-8.3)
[2017-05-31 06:46] LABS: Potassium 2.6 mEq/L (3.6-5.0)
[2017-05-31 07:23] LABS: Magnesium 1.5 mg/dL (1.8-2.5)
[2017-05-31] MEDS ORDERED: POTASSIUM CL 40 MEQ in NA CHLORIDE 0.9% 500 ML IV ONE (07:30)
[2017-05-31] MEDS: ENSURE HIGH PROTEIN 237 ML CAN PO SCH ×3 (07:43→20:30)
[2017-05-31] MEDS: PARoxetine HCl 10 MG TAB PO SCH ×2 (07:43→10:15)
[2017-05-31] MEDS: LACTOBACILLUS/ACIDOPHILUS TAB PO SCH ×2 (07:43→10:15)
[2017-05-31] MEDS: AMLODIPINE 2.5 MG TAB PO SCH (08:15)
[2017-05-31] MEDS: SOD CHLORIDE 0.65% NASAL SPRAY NAS SCH ×4 (10:16→20:30)
[2017-05-31] MEDS: HYDRALAZINE HCL 20 MG/ML VIAL IV PRN ×2 (10:24→23:39)
[2017-05-31] MEDS ORDERED: Magnesium Sulfate 2gm IVPB 2 G/50 ML BAG IV ONE (12:36)
[2017-05-31] MEDS: D5 0.45 NS 1,000 ML IV SCH (12:50)
[2017-05-31] MEDS ORDERED: POTASSIUM CL 40 MEQ in NA CHLORIDE 0.9% 500 ML IV SCH (16:00)
--- NOTE | 2017-05-31 16:10 | PN ---
Date of Progress Note: 05/31/2017 Subjective: The patient seen and examined. Chart reviewed and case discussed with RN and Dr. Theodore irwin. The patient essentially unable to go for her scope this morning due to electrolyte abnormalities. The patient states that she does not have much of an appetite. Did have some diarrhea yesterday. Review of Systems: Negative except as above. Medications: Reviewed. Objective: Vital signs: Temperature 97.6, heart rate 67, blood pressure 180/90, respirations 16, O2 91% on room air. General: Awake, alert,and oriented x3, in no distress. Elderly female, cachectic. BMI 19. CV: S1 and S2. No murmurs. Peripheral pulses present. Respiratory: Moving air well bilaterally. No wheezing. Abdomen: Soft, nontender, nondistended. Positive bowel sounds. Extremities: No clubbing, cyanosis, or edema. Neuro: Nonfocal. Laboratory Data: Sodium 137, potassium 2.6, chloride 103, CO2 of 24, BUN 12, creatinine 0.9, glucose 125, calcium 8.7, magnesium 1.5, total bilirubin 1.8. WBC 10.5, H and H 9.6 and 28.4, platelets 229 . Urine culture shows Klebsiella pneumoniae and Escherichia coli. Assessment And Plan: An 86-year-old female with; 1.Syncopal episode, likely vasovagal. To continue physical therapy. 2.Epistaxis, resolved. Continue nasal spray. 3.Essential hypertension, stable. 4.Metabolic acidosis, improved. We will adjust IV fluid. 5.Generalized anxiety disorder. 6.Gastroesophageal reflux disease. PPI. 7.Hypothyroidism, Synthroid. 8.Malnutrition, failure to thrive. BMI 19. We will continue with protein supplementation. The pat ient will need EGD. 9.Gastrointestinal bleed with melenic stools, unclear source, may be a GI versus hemolyzed blood fro m epistaxis, likely upper source, EGD in a.m. 10.Hypokalemia. We will replace and monitor. 11.Hypomagnesemia, replace and monitor. 12.Diarrhea, resolving. 13.History of breast cancer. 14.Acute kidney injury, creatinine normalized. 15.Anemia, acute blood loss anemia. Hemoglobin and hematocrit are stable. We will transfuse as nee ded. 16.Acute colitis, rectosigmoid. Continue IV antibiotics. 17.Gastrointestinal and deep venous thrombosis prophylaxis with PPI and SCDs. No chemical anticoagu lation due to bleed. Plan anticipated EGD in jace STORM/ERNIE Voice ID: [id number] Report ID: [id number]
[2017-05-31] MEDS: TEMAZEPAM 15 MG CAP PO PRN (20:29)
[2017-05-31] MEDS: VITAMIN K (ADULT) 10 MG/ML SQ SCH (20:30)
[2017-06-01] MEDS: PIPER/TAZO/NS 2.25gm 2.25 GM/50 ML BAG IVPB SCH ×2 (01:02→10:32)
[2017-06-01] MEDS: PANTOPRAZOLE INJ 80 MG in NA CHLORIDE 0.9% 250 ML IV SCH ×2 (01:02→10:32)
[2017-06-01] MEDS: D5 0.45 NS 1,000 ML IV SCH (01:20)
[2017-06-01 03:33] LABS: Absolute Monocytes 0.7 K/uL (0.1-1.3); Absolute Neutrophil 7.7 K/uL (1.8-8.0); Eosinophils % 2.3 % (0-4.4); Hematocrit 29.2 % (36.0-45.0); Lymphocytes % 9.9 % (15.3-44.8); MCH 28.3 pg (27.0-35.0); MCV 81.2 fL (80-100); MPV 7.8 fL (7.6-11.3); Monocytes % 7.2 % (3.3-12.3)
[2017-06-01 03:53] LABS: Albumin 3.4 g/dL (3.2-5.5); Bilirubin Total 1.2 mg/dL (0.3-1.2); Protein, Total 6.6 g/dL (6.0-8.3)
[2017-06-01 05:09] LABS: Potassium 2.8 mEq/L (3.6-5.0)
[2017-06-01] MEDS ORDERED: KCL 20 MEQ/100 mL IVPB 20 MEQ/100 ML BAG IV SCH (06:00)
[2017-06-01] MEDS: LEVOTHYROXINE SOD 0.1 MG TAB PO SCH (06:00)
[2017-06-01] MEDS: HYDRALAZINE HCL 20 MG/ML VIAL IV PRN (06:03)
[2017-06-01] MEDS ORDERED: POTASSIUM CL 40 MEQ in NA CHLORIDE 0.9% 500 ML IV SCH (08:00)
[2017-06-01] MEDS: ENSURE HIGH PROTEIN 237 ML CAN PO SCH ×2 (09:00→13:09)
[2017-06-01] MEDS: LACTOBACILLUS/ACIDOPHILUS TAB PO SCH ×2 (09:00→10:32)
[2017-06-01] MEDS ORDERED: Ringers Lactate 1,000 ML IV ONE (09:00)
[2017-06-01] MEDS: METOPROLOL TAR 50 MG TAB PO SCH ×2 (09:00→10:31)
[2017-06-01] MEDS ORDERED: LIDOCAINE 1% MPF 5 ML VIAL ONE (09:11)
[2017-06-01] MEDS ORDERED: PROPOFOL 200 MG/20 ML VIAL IV ONE (09:11)
[2017-06-01] MEDS ORDERED: ESMOLOL HCL 10 ML IV ONE (09:13)
--- NOTE | 2017-06-01 09:39 | ENDO RPT ---
[address], [address] EGD PROCEDURE REPORT EXAM DATE: 06/01/2017 PATIENT NAME: Salud Hooks I. MR#: [id number] BIRTHDATE: 1930 ATTENDING: Griffin Monique DR STATUS: inpatient - [facility] BUSINESS SERVICES ASSOCIATE: Michela Sosa RN and Hannah Augirre INDICATIONS: The patient is a 86 yr old Female here for an EGD due to anemia and Blood Loss Anemia PROCEDURE PERFORMED: EGD with biopsy for H. pylori and EGD for control of bleeding MEDICATIONS: Per Anesthesia. TOPICAL ANESTHETIC: none CONSENT: The patient understands the risks and benefits of the procedure and understands that these risks include, but are not limited to: sedation, allergic reaction, infection, perforation and/or bleeding. Alternative means of evaluation and treatment include, among others: physical exam, x-rays, and/or surgical intervention. The patient elects to proceed with this endoscopic procedure. DESCRIPTION OF PROCEDURE: During intra-op preparation period all mechanical medical equipment was checked for proper function. Hand hygiene and appropriate measures for infection prevention was taken. Procedure, possible complications, and alternatives including but not limited to the possibility of bleeding, perforation, tear, infection, sepsis, need for surgery, need for blood transfusion, and anesthesia related complications were explained to the patient. After the risks, benefits and alternatives of the procedure were thoroughly explained, Informed consent was verified, confirmed and timeout was successfully executed by the treatment team. The patient was placed in the left lateral position. The patient was anesthetized with topical anesthesia. Through the anesthetized oropharyngeal area, the scope was passed without any difficulty. The [id number] ([id number]) endoscope was introduced through the mouth and advanced to the anastamosis of the stomach and jejunum. 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 In the BP limb there were some diverticulum near the papilla, no sequelae of bleeding. There was some mild duodenitis in this limb and a biopsy was taken for path and H.Pylori. The scope was then passed down the jejunal limb which was found to be normal. The scope was returned to the G-J anastamosis and a small marginal ulcer was noted on the G-J anastamosis, there was ad adherant clot which was irrigated and found to have some bleeding. A single clip was placed with good hemostatis at this point. Biopsies were taken from the G-J for path and H.Pylori. Retroflexed views revealed a mild gastritis and a small hiatal hernia. The esophagus was then inspected and found to have some mild esophagitis type changes predominantly in the distal esophagus. The gastroscope was then slowly withdrawn and removed. Ulceration was found in the biliopancreatic limb of the duodenum. A biopsy for H. pylori was taken. A clip was also placed with good hemostasis. Moderate gastritis was found at the anastomosis. Marginal Ulceration was noted @ Anastamosis, A biopsy for H. pylori was taken. A biopsy for H. pylori was taken. ADVERSE EVENTS: There were no complications. IMPRESSIONS: 1. 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 Moderate gastritis was found at the anastomosis 3. A marginal ulceration was found at the anastomosis 4. Duodenitis 5. Esophagitis 6. Gastrojejumostomy, ulcer RECOMMENDATIONS: 1. anti-reflux regimen 2. acid suppression therapy 3. await biopsy results 4. avoid NSAIDS 5. follow-up: office 2 week(s) 6. hematocrit 7. follow-up of helicobacter pylori status, treat if indicated REPEAT EXAM: Griffin Monique DR eSigned: Griffin Monique DR 06/01/2017 9:39 AM cc: CPT CODES: ICD9 CODES: PATIENT NAME: Salud Hooks I. MR#: [id number]
[2017-06-01 10:13] VITALS: O2SAT 98
[2017-06-01] MEDS: SOD CHLORIDE 0.65% NASAL SPRAY NAS SCH ×2 (10:29→13:00)
[2017-06-01] MEDS: AMLODIPINE 2.5 MG TAB PO SCH (10:30)
[2017-06-01 10:32] LABS: Hematocrit 32.4 % (36.0-45.0)
[2017-06-01] MEDS: PARoxetine HCl 10 MG TAB PO SCH (10:32)
[2017-06-01] MEDS ORDERED: SUCRALFATE 1GM/10ML UCUP FT SCH (13:00)
[2017-06-01 15:33] VITALS: BP 180/77; TEMP 99.1
--- NOTE | 2017-06-02 02:48 | DS ---
Date of Discharge: 06/01/2017 Consultants: 1.Griffin Monique MD, with General Surgery. 2.Yasmeen Vazquez MD, with ENT. Procedures: On 06/01/2017, endoscopy by Dr. Monique. Findings: Diverticula found in the biliopancreatic portion of the duodenum. Moderate gastritis at t he anastomosis. Marginal ulceration found at the anastomosis, duodenitis, esophagitis, jejunostomy u lcer. Admitting Diagnoses: 1.Syncopal episode, likely vasovagal. 2.Epistaxis. 3.Essential hypertension. 4.Generalized anxiety disorder. 5.History of breast cancer. 6.Gastroesophageal reflux disease. 7.Hypothyroidism. 8.Failure to thrive. Discharge Diagnoses: 1.Syncopal episode. Vasovagal. Now recurrent. 2.Epistaxis, resolved. Continue nasal spray. The patient will follow up with Dr. Vazquez, ENT, for scope. 3.Essential hypertension, stable. 4.Metabolic acidosis, improved. 5.Hypokalemia, replaced. 6.Hypomagnesemia, replaced. 7.Diarrhea, resolved. 8.Acute kidney injury, resolved. 9.Acute blood loss anemia. 10.Acute colitis, rectosigmoid. 11.Esophagitis. 12.Gastrointestinal bleed with melenic stools, status post EGD. 13.Malnutrition, failure to thrive. BMI 19. 14.Hypothyroidism. 15.Gastroesophageal reflux disease. 16.Generalized anxiety disorder. Hospital Course: The patient is an 86-year-old female, who came in with syncopal episode. The patie nt had been taking more of her blood pressure medications than prescribed. The patient lives alone a nd does not have Home Health. The patient actually does have home health and was found in her bed wi th nosebleed. The patient was brought into the ER. She denies any trauma. The patient's syncopal e pisode was thought to be vasovagal. Orthostatic vital signs were negative. Carotid ultrasound did n ot show any hemodynamically significant stenosis. The patient worked well with physical therapy and did not have any further epistaxis. Dr. Vazquez was consulted, who evaluated the patient and recomme nded a scope in her office. She did not have any recurrence of her epistaxis and nasal saline spray was used. The patient did have some mild electrolyte abnormalities, which were corrected. She also did have a drop in her hemoglobin, and therefore, Dr. Monique with Surgery was consulted. GI was conor vailable. The patient went for scope, as mentioned above. She was found to have some esophagitis an d the patient was continued on PPI. She was also found to have some UTI with urine culture growing K lebsiella and Escherichia coli. Her CT scan showed some colitis in the rectosigmoid area. Her antib iotics were adjusted. The patient did well overall. Her white count normalized. She was able to im prove on her diet. The patient was then cleared for discharge from consultants standpoint and was re ferred to alf by Social Work upon family request. The patient was [facility] fair condition. Activity: Fall precautions. Medications: As per medication reconciliation list. Diet: Heart healthy. Followup: Follow up with primary care physician in 1 week. Follow up with Dr. Monique, surgeon, in 2 weeks. Follow up with ENT, Dr. Vazquez, if nosebleed recurs, return to ER for worsening condition. Time Spent: Total time spent discharging the patient was 37 minutes. Discharge Physical Examination: General: Awake, alert, and oriented x3. No acute distress. Elderl y female, cachectic, BMI 19. CV: S1, S2. No murmurs. Respiratory: Moving air well bilaterally. Gastrointestinal: Abdomen is soft, nontender, nondistended. Positive bowel sounds. Extremities: No clubbing, cyanosis, or edema. Neurologic: Nonfocal. SA/MODL Voice ID: [id number] Report ID: [id number]
== END 2017-06-01 16:35 | DRG 683 ==
LOC: ER 08:58 → ERHOLD 11:42 → 4TH 12:55 → OBSVTOIN 05-29 19:33
PROVIDERS: ADMIT Family Medicine; ATTEND Family Medicine
PROC: 0DB98ZX Excision of Duodenum, Via Natural or Artificial Opening Endoscopic, Diagnostic (ICD-10-PCS; 2017-06-01)
PROC: 0DB68ZX Excision of Stomach, Via Natural or Artificial Opening Endoscopic, Diagnostic (ICD-10-PCS; 2017-06-01)
PROC: 0W3P8ZZ Control Bleeding in Gastrointestinal Tract, Via Natural or Artificial Opening Endoscopic (ICD-10-PCS; principal; 2017-06-01 09:00)
DX: N17.9 Acute kidney failure, unspecified (principal); E46 Unspecified protein-calorie malnutrition; D62 Acute posthemorrhagic anemia; N39.0 Urinary tract infection, site not specified; Z68.1 Body mass index [BMI] 19.9 or less, adult; E87.2 Acidosis; R55 Syncope and collapse; E03.9 Hypothyroidism, unspecified; R04.0 Epistaxis; R62.7 Adult failure to thrive; K52.9 Noninfective gastroenteritis and colitis, unspecified; K26.9 Duodenal ulcer, unspecified as acute or chronic, without hemorrhage or perforation; K29.70 Gastritis, unspecified, without bleeding; K29.80 Duodenitis without bleeding; E87.6 Hypokalemia; E83.42 Hypomagnesemia; K20.9 Esophagitis, unspecified; K57.10 Diverticulosis of small intestine without perforation or abscess without bleeding; I10 Essential (primary) hypertension; K21.9 Gastro-esophageal reflux disease without esophagitis; F41.9 Anxiety disorder, unspecified; Z85.3 Personal history of malignant neoplasm of breast
CPT/HCPCS: 36415; 70450; 71045; 71260; 72125; 74177; 80048; 80053; 80076; 81003; 81015; 82274; 82962; 83735; 83880; 84132; 84484; 85014; 85018; 85025; 85610; 85730; 86850; 86900; 86901; 87077; 87086; 87088; 87186; 88305; 88312; 93005; 93880; 94760; 97163; 99285; C9113; J0360; J2405; J3430; J3475; J7030; P9016; Q9967

== ENCOUNTER 2018-09-13 09:50 | Emergency (ER) | payer OTHER ==
--- OUTSIDE RECORDS SUMMARY | 2018-09-13 09:53 | XMS REPORT | Clinical Summary ---
:1930 [facility] [address] [place] [address] Care Team Providers Name Role Phone Asked, No Pcp Primary Care Provider Unavailable Allergies Not on File Medications No known medications Active Problems Problem Noted Date Age-related osteoporosis with current pathological fracture 12/23/2016 Thoracic compression fracture, closed, initial encounter 12/01/2016 Acute low back pain 11/18/2016 Closed displaced fracture of surgical neck of right humerus 11/18/2016 Thoracic compression fracture 11/18/2016 Social History Tobacco Use Types Packs/Day Years Used Date Never Assessed Sex Assigned at Date Recorded Not on file Job Start Date Occupation Industry Not on file Not on file Not on file Travel History Travel Start Travel End No recent travel history available. Last Filed Vital Signs Not on file Plan of Treatment Health Maintenance Due Date Last Done Comments SHINGLES VACCINES (#1) 1980 65+ PNEUMOCOCCAL VACCINE (1 of 2 - PCV13) 07/06/1995 INFLUENZA VACCINE 09/28/2018 Results Not on fileafter 09/12/2017 Insurance Payer Benefit Plan / Subscriber ID Effective Dates Phone Address Type Group MEDICARE MEDICARE PART A xxxxxxxxxx 1995-Present [place], [place] Medicare AND B FORMERLY [facility] MED xxxxxxxxxxxx 2004-Present Commercial SUPPLEMENT ([place]) [place] [address] Advance Directives Patient has advance care planning documents on file. For more information, please contact:[facility] [place] [address]
--- OUTSIDE RECORDS SUMMARY | 2018-09-13 09:54 | XMS REPORT | Summary of Care ---
:1930 Author Organization [facility] Address [address] [place] [id number]- Encounter HQ Jesusr_lalo(FIN) [id number] Date(s): 11/07/16 - 11/11/[address] Professional Services provided by [facility] [place] [address]- Discharge Disposition: Home or Self Care Attending Physician: Pat Lopes MD Admitting Physician: Chester Mills MD Vital Signs Most recent to oldest 1 2 3 [Reference Range]: Height 149.86 cm (11/07/16 11:05 PM) Temperature Oral [96.4-99.1 97.9 DegF 97.7 DegF 97.7 DegF DegF] (11/11/16 8:08 AM) (11/11/16 2:55 AM) (11/10/16 11:22 PM) Blood Pressure [90-140/60-90 132/68 mmHg 114/67 mmHg 116/67 mmHg mmHg] (11/11/16 8:08 AM) (11/11/16 2:55 AM) (11/10/16 11:22 PM) Respiratory Rate [14-20 18 BRMIN 18 BRMIN 20 BRMIN BRMIN] (11/11/16 8:08 AM) (11/11/16 2:55 AM) (11/10/16 11:22 PM) Peripheral Pulse Rate [60-100 79 bpm 86 bpm 82 bpm bpm] (11/11/16 8:08 AM) (11/11/16 2:55 AM) (11/10/16 11:22 PM) Weight 33.182 kg 34.091 kg (11/07/16 11:05 PM) (11/07/16 2:26 PM) Body Mass Index 14.78 m2 (11/07/16 11:05 PM) Problem List Condition Effective Dates Status Health Status Informant GERD (gastroesophageal reflux Resolved disease)(Confirmed) HTN (hypertension)(Confirmed) Resolved Breast cancer(Confirmed) 193 Resolved Allergies, Adverse Reactions, Alerts Substance Reaction Severity Status ferrous sulfate Active meperidine Active methadone Active morphine Active nefazodone Active propoxyphene Active traZODone Active Medications acetaminophen 650 mg, 2 tab, Route: PO, Drug form: TAB, Q6H, Dosing Weight 34.091, kg, PRN Pain 1-3/Temp > 100.4 F, Start date: 11/07/16 18:48:00 CDT, Duration: 30 day, Stop date: 12/07/16 18:47:00 CDT Notes: Do not exceed 4 gm/day. (Same as: Tylenol) Start Date: 11/07/16 Stop Date: 11/11/16 Status: DiscontinuedAmbien 5 mg, 1 tab, Route: PO, Drug form: TAB, ONCE, Dosing Weight 33.182, kg, PRN as needed for insomnia, Priority: NOW, Start date: 11/08/16 0:42:00 CDT Notes: (Same As: Ambien) Start Date: 11/08/16 Stop Date: 11/08/16 Status: CompletedAmbien 5 mg, 1 tab, Route: PO, Drug form: TAB, ONCE, Dosing Weight 33.182, kg, PRN as needed for insomnia, Start date: 11/10/16 21:37:00 CDT Notes: (Same As: Ambien) Start Date: 11/10/16 Stop Date: 11/10/16 Status: CompletedAmbien 5 mg, 1 tab, Route: PO, Drug form: TAB, Bedtime, Dosing Weight 33.182, kg, PRN Insomnia, Start date:11/08/16 20:51:00 CDT, Duration: 30 day, Stop date: 20:50:00 CDT Notes: (Same As: Ambien) Start Date: 11/08/16 Stop Date: 11/10/16 Status: DiscontinuedamLODIPine 2.5 mg, 1 tab, Route: PO, Drug form: TAB, ONCE, Dosing Weight 34.091, kg, Start date: 11/07/16 15:29:00 CDT, Stop date: 11/07/16 15:29:00 CDT Notes: (Same as: Zeny) Start Date: 11/07/16 Stop Date: 11/07/16 Status: CompletedamLODIPine 10 mg, 1 tab, Route: PO, Drug form: TAB, Daily, Dosing Weight 34.091, kg, Start date: 11/07/16 19:00:00 CDT, Stop date: 12/07/16 9:00:00 CDT Notes: (Same as: Zeny) Start Date: 11/07/16 Stop Date: 11/10/16 Status: DiscontinuedamLODIPine 2.5 mg, PO, Daily, 0 Refill(s) Start Date: 11/07/16 Stop Date: 11/11/16 Status: Discontinuedbisacodyl 10 mg, 1 supp, Route: MS, Drug form: SUPP, Daily, Dosing Weight 34.091, kg, PRN Constipation, Start date: 11/07/16 18:48:00 CDT, Duration: 30 day, Stop date: 18:47:00 CDT Notes: (Same As: Dulcolax, Bisco-Lax) Start Date: 11/07/16 Stop Date: 11/11/16 Status: Discontinuedcalcium-vitamin D 500 mg-400 intl units oral tablet, chewable 1 tab, CHEW, BID, # 60 tab, 0 Refill(s), Pharmacy: [facility] [id number] Start Date: 11/11/16 Stop Date: 12/11/16 Status: Orderedcalcium-vitamin D 500 mg-400 intl units oral tablet, chewable 1 tab, Route: CHEW, Drug Form: CHEWTAB, Dosing Weight 33.182, kg, BID, Start date: 11/08/16 9:00:00 CDT, Duration: 30 day, Stop date: 12/07/16 17:00:00 CDT Notes: (calcium carbonate-vit D 500mg-400unit chew TAB) Same as: Oscal 500+D Start Date: 11/08/16 Stop Date: 11/11/16 Status: Discontinueddocusate 100 mg, 1 cap, Route: PO, Drug form: CAP, BID, Dosing Weight 34.091, kg, Start date: 11/08/16 9:00:00 CDT, Duration: 30 day, Stop date: 12/07/16 17:00:00 CDT Notes: (Same as: Colace) (Do Not Crush) Start Date: 11/08/16 Stop Date: 11/11/16 Status: Discontinueddocusate sodium 100 mg oral capsule 100 mg=1 cap, PO, BID, # 60 cap, 0 Refill(s), Pharmacy: [facility] [id number] Start Date: 11/11/16 Stop Date: 12/11/16 Status: Orderedenoxaparin 40 mg, 0.4 mL, Route: SUB-Q, Drug form: INJ, [id number], Dosing Weight 34.091, kg , Start date: 11/07/16 19:00:00 CDT, Duration: 30 day, Stop date: 12/06/16 21:00 :00 CDT Notes: (Same as: Lovenox) Start Date: 11/07/16 Stop Date: 11/11/16 Status: Discontinuedenoxaparin 40 mg/0.4 mL subcutaneous solution 40 mg=0.4 mL, SUB-Q, [id number], X 21 day, # 8 mL, 0 Refill(s), Pharmacy: [facility] [address] Start Date: 11/11/16 Stop Date: 12/02/16 Status: Orderedergocalciferol 50,000 intl units oral capsule 50,000 IntlUnit, 1 cap, Route: PO, Drug form: CAP, Q7D, Dosing Weight 33.182, kg , Start date: 11/09/16 16:00:00 CDT, Duration: 30 day, Stop date: 12/07/16 9:00: 00 CDT Notes: (Same as: Vitamin D) "Do Not Crush" Start Date: 11/09/16 Stop Date: 11/11/16 Status: Discontinuedergocalciferol 50,000 intl units oral capsule 50,000 IntlUnit=1 cap, PO, Q7D, # 5 cap, 0 Refill(s), Pharmacy: [facility] [id number] Start Date: 11/11/16 Stop Date: 12/11/16 Status: OrderedhydrALAZINE 10 mg, 0.5 mL, Route: IV, Drug form: INJ, Q6H, Dosing Weight 34.091, kg, PRN Hypertension, Start date: 11/07/16 18:51:00 CDT, Duration: 30 day, Stop date: 18:50:00 CDT Notes: (Same as: Apresoline)Push over 5 minutes Start Date: 11/07/16 Stop Date: 11/10/16 Status: Discontinuedloperamide 2 mg, 10 mL, Route: PO, Drug form: LIQ, Q4H, Dosing Weight 33.182, kg, PRN as needed for loose stool, Start date: 11/09/16 12:00:00 CDT, Duration: 30 day, Stop date: 12/09/16 8:00:00 CDT Notes: Same as Imodium Start Date: 11/09/16 Stop Date: 11/11/16 Status: DiscontinuedMaalox Advanced Regular Strength SUSP 30 mL, Route: PO, Drug Form: SUSP, Dosing Weight 33.182, kg, QID, PRN Heartburn , Start date: 11/10/16 19:15:00 CDT, Duration: 30 day, Stop date: 12/10/16 19:14 :00 CDT Notes: (aluminum hydroxide-magnesium hyd-simethicone [phone]/5ml 30 ml ud DEREJE) Start Date: 11/10/16 Stop Date: 11/11/16 Status: Discontinuedmelatonin 3 mg, 1 tab, Route: PO, Drug form: TAB, Bedtime, Dosing Weight 34.091, kg, PRN Insomnia, Start date:11/07/16 18:48:00 CDT, Duration: 30 day, Stop date: 18:47:00 CDT Notes: (Same as: Melatonin) Start Date: 11/07/16 Stop Date: 11/11/16 Status: Discontinuedondansetron 4 mg, 2 mL, Route: IVP, Drug form: INJ, Q8H, Dosing Weight 34.091, kg, PRN Nausea & Vomiting, Start date: 11/07/16 18:48:00 CDT, Duration: 30 day, Stop date: 12/07/16 18:47:00 CDT Notes: (Same as: Zofran) MEDICATION WASTE Product Size: 4 mgProduct Wasted: 0 mg Start Date: 11/07/16 Stop Date: 11/10/16 Status: DiscontinuedoxyCODONE 5 mg immediate release 5 mg, 1 tab, Route: PO, Drug form: TAB, Q4H, Dosing Weight 34.091, kg, PRN Pain Score 7-10, Start date: 11/07/16 18:48:00 CDT, Duration: 30 day, Stop date: 12/14 18:47:00 CDT Notes: (Same as: Roxicodone) Start Date: 11/07/16 Stop Date: 11/10/16 Status: Discontinuedpolyethylene glycol 3350 17 gm, 1 pkt, Route: PO, Drug form: PWDR, Daily, Dosing Weight 34.091, kg, Start date: 11/08/16 9:00:00 CDT, Duration: 30 day, Stop date: 12/07/16 9:00:00 CDT Notes: Dissolve in 8 oz of water or juice.(Same as: Miralax) Start Date: 11/08/16 Stop Date: 11/11/16 Status: DiscontinuedProtonix 40 mg, 1 tab, Route: PO, Drug form: ECTAB, Before Dinner, Dosing Weight 34.091, kg, Start date: 11/08/16 16:30:00 CDT, Duration: 30 day, Stop date: 12/07/16 16: 30:00 CDT Notes: Tablet should not be chewed or crushed.(Same as: Protonix) Start Date: 11/08/16 Stop Date: 11/11/16 Status: DiscontinuedProtonix 40 mg, Route: PO, Drug form: ECTAB, Daily, Dosing Weight 33.182, kg, Start date : 11/10/16 19:14:00 CDT, Duration: 30 day, Stop date: 12/10/16 9:00:00 CDT Start Date: 11/10/16 Stop Date: 11/10/16 Status: Discontinuedsenna 17.2 mg, 2 tab, Route: PO, Drug Form: TAB, Dosing Weight 34.091, kg, Bedtime, Start date: 11/07/16 21:00:00 CDT, Duration: 30 day, Stop date: 12/06/16 21:00: 00 CDT Notes: (Same as: Braxton) Start Date: 11/07/16 Stop Date: 11/11/16 Status: Discontinuedtramadol 50 mg, 1 tab, Route: PO, Drug form: TAB, Q6Hnow, Dosing Weight 34.091, kg, PRN Pain Score 4-6, Startdate: 11/07/16 18:48:00 CDT, Duration: 30 day, Stop date: 12/07/16 18:47:00 CDT Notes: Not to exceed 400mg/day. (Same As: Ultram) Start Date: 11/07/16 Stop Date: 11/11/16 Status: Discontinuedtramadol 50 mg oral tablet 50 mg=1 tab, PO, Q6Hnow, PRN Pain Score 4-6, X 7 day, # 28 tab, 0 Refill(s) Start Date: 11/11/16 Stop Date: 11/18/16 Status: Ordered Results ELECTROLYTES Most recent to oldest [Reference Range]: 1 Sodium Lvl [135-145 mEq/L] 138 mEq/L (11/08/16 5:37 AM) Potassium Lvl [3.5-5.1 mEq/L] 3.7 mEq/L (11/08/16 5:37 AM) Chloride Lvl [95-109 mEq/L] 102 mEq/L (11/08/16 5:37 AM) CO2 [24-32 mEq/L] 25 mEq/L (11/08/16 5:37 AM) AGAP [10.0-20.0 mEq/L] 14.7 mEq/L (11/08/16 5:37 AM) CHEM PANEL Most recent to oldest [Reference Range]: 1 Creatinine Lvl [0.50-1.40 mg/dL] 0.92 mg/dL (11/08/16 5:37 AM) eGFR 56 mL/min/1.73m2 1 *NA* (11/08/16 5:37 AM) BUN [7-22 mg/dL] 25 mg/dL *HI* (11/08/16 5:37 AM) Glucose Lvl [70-99 mg/dL] 90 mg/dL (11/08/16 5:37 AM) Calcium Lvl [8.5-10.5 mg/dL] 8.7 mg/dL (11/08/16 5:37 AM) Phosphorus [2.5-4.5 mg/dL] 2.9 mg/dL (11/08/16 5:37 AM) Magnesium Lvl [1.8-2.4 mg/dL] 2.2 mg/dL (11/08/16 5:37 AM) Vitamin D, 25-OH, Total [30.0-100.0 ng/mL] 8.9 ng/mL *LOW* (11/08/16 10:19 AM) 1Result Comment: The eGFR is calculated using the CKD-EPI formula. In most young , healthy individualsthe eGFR will be >90 mL/min/1.73m2. The eGFR declines with age. An eGFR of 60-89 may be normal in some populations, particularly the elderly, for whom the CKD-EPI formula has not been extensively validated. Use of the eGFR is not recommended in the following populations: Individuals with unstable creatinine concentrations, including patients and those with serious co-morbid conditions. Patients with extremes in muscle mass or diet. The data above are obtained from the National Kidney Disease Education Program ( NKDEP) which additionally recommends that when the eGFR is used in patients with extremes of body mass index for purposesof drug dosing, the eGFR should be multiplied by the estimated BMI.PARATHYROID PROFILE Most recent to oldest [Reference Range]: 1 Ca Ion WB [1.05-1.25 mMol/L] 1.12 mMol/L (11/08/16 10:19 AM) Ca Norm WB [1.05-1.25 mMol/L] 1.14 mMol/L (11/08/16 10:19 AM) PTH Intact [11.1-79.5 pg/mL] 86.6 pg/mL *HI* (11/08/16 10:19 AM) HEMATOLOGY Most recent to oldest [Reference Range]: 1 WBC [3.7-10.4 K/CMM] 8.0 K/CMM (11/08/16 5:37 AM) RBC [4.20-5.40 M/CMM] 3.30 M/CMM *LOW* (11/08/16 5:37 AM) Hgb [12.0-16.0 g/dL] 10.1 g/dL *LOW* (11/08/16 5:37 AM) Hct [36.0-48.0 %] 28.8 % *LOW* (11/08/16 5:37 AM) MCV [80.0-98.0 fL] 87.3 fL (11/08/16 5:37 AM) MCH [27.0-31.0 pg] 30.6 pg (11/08/16 5:37 AM) MCHC [32.0-36.0 g/dL] 35.1 g/dL (11/08/16 5:37 AM) RDW [11.5-14.5 %] 17.8 % *HI* (11/08/16 5:37 AM) Platelet [133-450 K/CMM] 215 K/CMM (11/08/16 5:37 AM) MPV [7.4-10.4 fL] 8.3 fL (11/08/16 5:37 AM) Segs [45.0-75.0 %] 71.9 % (11/08/16 5:37 AM) Lymphocytes [20.0-40.0 %] 18.4 % *LOW* (11/08/16 5:37 AM) Monocytes [2.0-12.0 %] 7.9 % (11/08/16 5:37 AM) Eosinophils [0.0-4.0 %] 1.3 % (11/08/16 5:37 AM) Basophils [0.0-1.0 %] 0.5 % (11/08/16 5:37 AM) Segs-Bands # [1.5-8.1 K/CMM] 5.7 K/CMM (11/08/16 5:37 AM) Lymphocytes # [1.0-5.5 K/CMM] 1.5 K/CMM (11/08/16 5:37 AM) Monocytes # [0.0-0.8 K/CMM] 0.6 K/CMM (11/08/16 5:37 AM) Eosinophils # [0.0-0.5 K/CMM] 0.1 K/CMM (11/08/16 5:37 AM) Immunizations No data available for this section Procedures Procedure Date Related Diagnosis Body Site Closure of gastric ulcer 1969 Social History Social History Type Response Smoking Status Never smoker; Exposure to Tobacco Smoke None; Cigarette Smoking Last 365 Days No; Reg Smoking Cessation Counseling No Assessment and Plan Extracted from: Title: Progress Note Author: Pat Lopes MD Date: 11/10/16 Assessment/Plan 86 yo with PUD, HTN, breast ca (currently in remission) p/w persistent back pain s/p fall. 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 1.Compression fracture of body of thoracic vertebra no surgical intervention per ortho spine. no need for brace. f/u with Dr. Cosme in 1-2 weeks. 2.Humeral fracture NWB RUE. sling for immobilization. f/u w Dr. Flanagan [phone] to schedule appointment on 11/18. 3.Severe malnutrition encourage po intake. cont calcium carbonate 600 mg/vitamin D3 BID. ergocalciferol 50K weekly x 12 weeks. call [phone] to schedule appointment with [place] [facility] with Dr. Chapin sethi 3-4 weeks for further osteoporosis evaluation. 4.HTN (hypertension) pt expressing orthostatic symptoms. d/c amlodipine 10 mg daily. 5.GERD (gastroesophageal reflux disease) cont protonix. 6.Acute pain tylenol & tramadol prn. bm regimen. 7.Breast ca currently in remission. will defer to OP oncologist. Prophylaxis lovenox Disposition home with home PT/OT pending PT clearance. Extracted from: Title: Bone Health Author: Margareth Batista Date: 11/08/16 Attending: Chester Mills MD Service: Internal Medicine Code status: None Specified=FULL CODE Reason for Admission: COMPRESSION THORACIC FX,HUMERUS FX,S/P FALL Working DRG: None Documented Isolation: None Documented Consulting Physicians: (none on file) CHIEF COMPLAINT: R humerus, T12, and L1 fragility fracture HISTORY OF PRESENT ILLNESS: Ms. Hooks is an 86 year old postmenopausal woman w/ PMH significant for HTN, GERd (with history of ulcer), and history of breast cancer who presented to the ED as a transfer from an OSH in [place] on 11/07/16. The history is obtained from the patient, her son, and through chart review. She reportedly was at home and fell on , 11/04/16, when she trippe d over her dog in the middle of the night. She fell onto her R shoulder and had immediate pain so went to the local ED in [place]. She was given a cuff and collar sling for the humerus fracture and sent home. She then returned to the ED on 11/07/16 for persistant pain and was noted at that time to also have the T12 and L1 VCF so was transferred to [facility]. Previous history of fracture: Denies Family history of fracture/osteoporosis: Denies Previous DEXA: Denies Prescription medication for osteoporosis/penia: Denies Supplements: Denies. Per son, she has had a very poor diet over the last several years and has lost over 10 pounds. They have sought dietary counseling for her but have been unsuccessful thus far in improving this. Physical Activity: Patient denies use of ambulatory aids at baseline. She has a caregiver that comes to the house daily to help with showering, cleaning, and other ADLs. She also has another caregiver t hat comes once per week to help with gardening and other recreational activities. REVIEW OF SYSTEMS: CONSTITUTIONAL: No weight loss, fever, chills, weakness or fatigue. HEENT: Eyes: No visual loss, blurred vision, double vision. Ears, Nose, Throat : No hearing loss, sneezing, congestion, no sore throat. SKIN: No rash or itching. CARDIOVASCULAR: No chest pain, chest pressure or chest discomfort. RESPIRATORY: No SOB. No coughing. GASTROINTESTINAL: No loss of appetite, nausea, vomiting or diarrhea. No abdominal pain or bloody stools. GENITOURINARY: No dysuria, hematuria, polyuria. NEUROLOGICAL: No headache, dizziness, syncope, paralysis, ataxia, numbness or tingling in the extremities. No change in bowel or bladder control. MUSCULOSKELETAL: See HPI. HEMATOLOGIC: No easy bleeding or bruising. LYMPHATICS: No enlarged nodes. PSYCHIATRIC: No history of depression or anxiety. ENDOCRINOLOGIC: No reports of sweating, cold or heat intolerance. No polyuria or polydipsia. PAST MEDICAL HISTORY: See HPI. HTN (hypertension) GERD (gastroesophageal reflux disease) Breast cancer FAMILY HISTORY: See HPI. No qualifying data available SOCIAL HISTORY: See HPI. Tobacco Details: Use: Never smoker. Tobacco smoke exposure: None. Did the Patient Smoke Cigarettes Anytime During the Last 365 Days? No. Cessation Counseling Provided? No. Vitals Tmp(F) Pulse BP RR SpO2 FIO2 11/08 08:56 98.8 95 138/77 18 96 --- 11/08 03:43 96.2 89 95/60 20 96 --- 11/07 22:45 98.2 92 116/69 20 96 --- 11/07 20:03 ---- 109 92/53 22 98 --- 11/07 19:39 ---- 106 141/65 39 98 --- 24 Hr Tmax: 98.8F (37.11c) at 11/08 08:56 Vital Signs are the last 5 in the past 48 hours. Date Wt(kg) Wt(lb) Ht(cm) Ht(in) Method 11/07 (initial) 33.18 73.00 149.86 59.00 Estimated PHYSICAL EXAM: CONSTITUTIONAL: 86 year old woman laying in bed in NAD. Appears of stated age but thin and frail. Son at bedside. PSYCHOLOGICAL: Appropriate mood and affect. Alert and oriented. HEENT: Normocephalic, atraumatic. RESPIRATORY: Breathing is even and nonlabored on RA. MUSCULOSKELETAL: No gross deformities. No involuntary movements. No sling or back brace in place. NEUROLOGICAL: Grossly neurovascularly intact in BLE and BUE. 24hr Labs 11/08 0537 Glucose Lvl 90 BUN 25 H Creatinine Lvl 0.92 Sodium Lvl 138 Potassium Lvl 3.7 Chloride Lvl 102 CO2 25 AGAP 14.7 Calcium Lvl 8.7 eGFR 56 Magnesium Lvl 2.2 Phosphorus 2.9 WBC 8.0 RBC 3.30 L Hgb 10.1 L Hct 28.8 L MCV 87.3 MCH 30.6 MCHC 35.1 RDW 17.8 H Platelet 215 MPV 8.3 Segs 71.9 Monocytes 7.9 Lymphocytes 18.4 L Eosinophils 1.3 Basophils 0.5 Segs-Bands # 5.7 Lymphocytes # 1.5 Monocytes # 0.6 Eosinophils # 0.1 IMAGING: Radiology Report EXAM: XR RIGHT FOREARM 2 VIEWS DATE: 11/07/2016 3:15 PM CDT IMPRESSION: 1. Soft tissue swelling of the distal arm/elbow/proximal forearm without underlying acute osseous abnormality. 2. Diffuse osteopenia. Radiology Report EXAM: XR RIGHT SHOULDER 3 VIEWS DATE: 11/07/2016 3:15 PM CDT IMPRESSION: 1. Mildly comminuted proximal right humeral fracture with fractures through the surgical neck and greater tuberosity. Alignment of the glenohumeral joint is normal. Radiology Report EXAM: CT CERVICAL SPINE WITHOUT CONTRAST EXAM: CT THORACIC SPINE WITHOUT CONTRAST DATE: 11/07/2016 4:21 PM CDT IMPRESSION: 1. Chronic severe T12 vertebral compression deformity, vertebra plana, with about 5 mm retropulsion of the vertebral body into the spinal canal causing severe spinal canal stenosis and cord compression. 2. Chronic appearing mild superior endplate compression deformities of T5, T6 vertebral bodies without significant height loss or retropulsion. 3. Subtle superior endplate compression fracture of L1 is partially visualized and will be described on the lumbar spine CT. 4. Opacification of the right sphenoid sinus. 5. Multiple hypodense lesions within the liver, incompletely evaluated. Recommend dedicated liver protocol CT/magnetic resonance imaging for further evaluation. Radiology Report EXAM: CT LUMBAR SPINE WITHOUT CONTRAST DATE: 11/07/2016 3:08 PM CDT IMPRESSION: 1. Acute superior endplate compression fracture of L1 vertebra without significant height loss or retropulsion. This finding is communicated to emergency medicine resident Dr. Burt on 11/07/2016 at 1819 hours. 2. Chronic severe T12 vertebral compression deformity, vertebra plana with about 5 mm retropulsion of the vertebra into the spinal canal causing severe spinal canal stenosis and cord compression. 3. Mild degenerative changes of the lumbar spine with L3-L4 degenerative disc disease. ASSESSMENT: 1. Acute R humerus fragility fracture and L1 VCF 2. Chronic T12 VCF 3. Clinical osteoporosis: Supported by radiographic findings noted above PLAN: 1. Labs: Vitamin D and PTH level pending. 2. Medication: Calcium carbonate 500mg/Vitamin D3 400 IU BID. 3. Pain control: Per primary. 4. Antibiotics: Per primary. 5. PT/OT: As ordered. Weightbearing status per ortho. 6. Education: Counseled patient and family on etiology of bone disease and importance of fall prevention, bone health, and appropriate treatment options. Educational handout given. 7. Discharge: Per primary. Follow up in [facility] ([phone]) or with PCP, Dr. Chapin Ambriz, in [place] as outpatient 3-4 weeks after discharge. Please call [phone] with any questions or concerns. Margareth Batista PA-C Fragility F[employer] Addendum by Margareth Batista on Bone Health labs reviewed: 11/09/2016 15:21 1. Vitamin D deficiency: 8.9 - Will add ergocalciferol 50, 000 IU weekly x 12 weeks 2. Hyperparathyroidism: 86.6 - likely secondary due to vitamin D deficiency Patient will need the following as outpatient for additional bone health work up: 1. DXA 2. Labs: BSAP, NTx, TSH, T4 3. Repeat Vitamin D level and PTH in 3 months Extracted from: Title: History and Physical Author: Vladimir Ruffin MD Date: 11/07/16 Assessment/Plan 86-year-old female with a past medical history of GERD, stomach ulcers, hypertension,breast cancer thought to be in remission who presents status post fall on found to have T12 compression fracture and right humeral fracture 1.Compression fracture of body of thoracic vertebra Management as per orthopedic spine planning possible intervention 2.Humeral fracture Management as per orthopedic surgery planning possible intervention 3.Severe malnutrition Substance by significant weight lossand muscle wasting Follow BMP for signs of refeeding have orderedrenal insurance to see if the patient will drink this as opposed to the other ones 4.HTN (hypertension) Increased home Norvasc to 10 mg as needed hydralazine 5.GERD (gastroesophageal reflux disease) Started on Protonix 6.Acute pain Multi multiple pain regimen with Tylenol Ultram and antispasmodics Bowel regimen 7.Breast ca Thought to be in remission Prophylaxis Started on Lovenox Disposition Pending orthopedic evaluation and intervention as well as physical and occupational therapy evaluation Hospitalist is primary please page [phone]
--- OUTSIDE RECORDS SUMMARY | 2018-09-13 09:54 | XMS REPORT ---
:1930 Author Organization [facility] Address [address] [place] [address] Dr. Gudino [address] [place] [id number] Care Team Providers Name Role Phone Unavailable Unavailable Unavailable Problems This patient has no known problems. Allergies, Adverse Reactions, Alerts This patient has no known allergies or adverse reactions. Medications This patient has no known medications.
--- OUTSIDE RECORDS SUMMARY | 2018-09-13 09:54 | XMS REPORT | CCD ---
:1930 Author Organization [facility] Care Team Providers Name Role Phone [employer] Provider Vital Signs Most recent to oldest [Reference Range]: 1 Height 147.32 cm (11/20/2012 11:12:00) Weight 43.636 kg (11/20/2012 11:12:00)
--- OUTSIDE RECORDS SUMMARY | 2018-09-13 09:54 | XMS REPORT | Continuity of Care Document ---
:1930 Author Organization [employer] Care Team Providers Name Role Phone [employer] [facility] Unavailable Unavailable Problems Problem Status Onset Classification Date Comments Source Date Reported 1ACK PAIN Active [place] [address] [facility] COMPRESSION Active [facility] THORACIC 7 Medical FX,HUMERUS Center FX,S/P F SYNCOPE Active [facility] 3 [facility] Center Breast cancer Resolved Problem 11/14/[address] Center GERD Resolved Problem 11/14/2016 [facility] (Confirmed) [facility] HTN (Confirmed) Resolved Problem 11/14/2016 [facility] SYNCOPE AND Active [facility] COLLAPSE [facility] Center COLLAPSED Active [facility] VERTEBRA, NEC, [facility] THORACIC REGION Center UNSP FRACTURE Active [facility] OF SHAFT OF [facility] HUMERUS, UNSP Center Medications Medication Details Route Status Patient Ordering Order Source Instructions Provider Date enoxaparin 40 40 mg=0.4 Active [facility] mg/0.4 mL mL, SUB-Q, 017 Medical subcutaneous [id number], X Center solution 21 day, # 8 mL, 0 Refill(s), Pharmacy: [facility] [id number] tramadol 50 mg=1 tab, Active [facility] hydrochloride 50 PO, Q6Hnow, 017 Medical MG Oral Tablet PRN Pain Center Score 4-6, X 7 day, # 28 tab, 0 Refill(s) Ergocalciferol 50,000 Active [facility] [address] UNT Oral IntlUnit=1 017 Medical Capsule cap, PO, Center Q7D, # 5 cap, 0 Refill(s), Pharmacy: [facility] [id number] Docusate Sodium 100 mg=1 Active [facility] 100 MG Oral cap, PO, 017 Medical Capsule BID, # 60 Center cap, 0 Refill(s), Pharmacy: [facility] [id number] Calcium Carbonate 1 tab, CHEW, Active [facility] 1250 MG / BID, # 60 017 Medical Cholecalciferol tab, 0 Center 400 UNT Chewable Refill(s), Tablet Pharmacy: [facility] [id number] Ambien 5 mg, 1 tab, Inactive [facility] Route: PO, 017 Medical Drug form: Reading TAB, ONCE, Dosing Weight 33.182, kg, PRN as needed for insomnia, Start date: 11/10/16 21:37:00 CDTNotes: (Same As: Ambien) Maalox Advanced 30 mL, No Longer [facility] Regular Strength Route: PO, Active 017 Medical SUSP Drug Form: Reading SUSP, Dosing Weight 33.182, kg, QID, PRN Heartburn, Start date: 11/10/16 19:15:00 CDT, Duration: 30 day, Stop date: 12/10/16 19:14:00 CDTNotes: (aluminum hydroxide-ma gnesium hyd-simethic one [phone] /5ml 30 ml ud DEREJE) Protonix 40 mg, Inactive [facility] Route: PO, 017 Medical Drug form: Reading ECTAB, Daily, Dosing Weight 33.182, kg, Start date: 11/10/16 19:14:00 CDT, Duration: 30 day, Stop date: 12/10/16 9:00:00 CDT Ergocalciferol 50,000 No Longer [facility] [address] UNT Oral IntlUnit, 1 Active 017 Medical Capsule cap, Route: Reading PO, Drug form: CAP, Q7D, Dosing Weight 33.182, kg, Start date: 11/09/16 16:00:00 CDT, Duration: 30 day, Stop date: 12/07/16 9:00:00 CDTNotes: (Same as: Vitamin D) "Do Not Crush" Loperamide 2 mg, 10 mL, No Longer [facility] Route: PO, Active 017 Medical Drug form: Reading LIQ, Q4H, Dosing Weight 33.182, kg, PRN as needed for loose stool, Start date: 11/09/16 12:00:00 CDT, Duration: 30 day, Stop date: 12/09/16 8:00:00 CDTNotes: Same as Imodium Ambien 5 mg, 1 tab, No Longer [facility] Route: PO, Active 017 Medical Drug form: Center TAB, Bedtime, Dosing Weight 33.182, kg, PRN Insomnia, Start date: 11/08/16 20:51:00 CDT, Duration: 30 day, Stop date: 12/08/16 20:50:00 CDTNotes: (Same As: Ambien) Protonix 40 mg, 1 No Longer [facility] tab, Route: Active 017 Medical PO, Drug Center form: ECTAB, Before Dinner, Dosing Weight 34.091, kg, Start date: 11/08/16 16:30:00 CDT, Duration: 30 day, Stop date: 12/07/16 16:30:00 CDTNotes: Tablet should not be chewed or crushed. (Same as: Protonix) Calcium Carbonate 1 tab, No Longer [facility] 1250 MG / Route: CHEW, Active [facility] [place] [facility] Cholecalciferol Drug Form: Reading 400 UNT Chewable CHEWTAB, Tablet Dosing Weight 33.182, kg, BID, Start date: 11/08/16 9:00:00 CDT, Duration: 30 day, Stop date: 12/07/16 17:00:00 CDTNotes: (calcium carbonate-vi t D 500mg-400uni t chew TAB) Same as: Oscal 500+D Docusate 100 mg, 1 No Longer [facility] cap, Route: Active 017 Medical PO, Drug Center form: CAP, BID, Dosing Weight 34.091, kg, Start date: 11/08/16 9:00:00 CDT, Duration: 30 day, Stop date: 12/07/16 17:00:00 CDTNotes: (Same as: Colace) (Do Not Crush) POLYETHYLENE 17 gm, 1 No Longer [facility] GLYCOL 3350 pkt, Route: Active 017 Medical PO, Drug Center form: PWDR, Daily, Dosing Weight 34.091, kg, Start date: 11/08/16 9:00:00 CDT, Duration: 30 day, Stop date: 12/07/16 9:00:00 CDTNotes: Dissolve in 8 oz of water or juice. (Same as: Miralax) Ambien 5 mg, 1 tab, Inactive [facility] Route: PO, 017 Medical Drug form: Center TAB, ONCE, Dosing Weight 33.182, kg, PRN as needed for insomnia, Priority: NOW, Start date: 11/08/16 0:42:00 CDTNotes: (Same As: Ambien) sennosides, [facility] 17.2 mg, 2 No Longer [facility] tab, Route: Active 017 Medical PO, Drug Center Form: TAB, Dosing Weight 34.091, kg, Bedtime, Start date: 11/07/16 21:00:00 CDT, Duration: 30 day, Stop date: 12/06/16 21:00:00 CDTNotes: (Same as: Senokot) Enoxaparin 40 mg, 0.4 No Longer [facility] mL, Route: Active 017 Medical SUB-Q, Drug Center form: INJ, [id number], Dosing Weight 34.091, kg, Start date: 11/07/16 19:00:00 CDT, Duration: 30 day, Stop date: 12/06/16 21:00:00 CDTNotes: (Same as: Lovenox) Amlodipine 10 mg, 1 No Longer [facility] tab, Route: Active 017 Medical PO, Drug Center form: TAB, Daily, Dosing Weight 34.091, kg, Start date: 11/07/16 19:00:00 CDT, Stop date: 12/07/16 9:00:00 CDTNotes: (Same as: Norvasc) Hydralazine 10 mg, 0.5 No Longer [facility] mL, Route: Active 017 Medical IV, Drug Center form: INJ, Q6H, Dosing Weight 34.091, kg, PRN Hypertension , Start date: 11/07/16 18:51:00 CDT, Duration: 30 day, Stop date: 12/07/16 18:50:00 CDTNotes: (Same as: Apresoline) Push over 5 minutes Ondansetron 4 mg, 2 mL, No Longer [facility] Route: IVP, Active 017 Medical Drug form: Center INJ, Q8H, Dosing Weight 34.091, kg, PRN Nausea & Vomiting, Start date: 11/07/16 18:48:00 CDT, Duration: 30 day, Stop date: 12/07/16 18:47:00 CDTNotes: (Same as: Cliff) MEDICATION WASTE Product Size: 4 mg Product Wasted: 0 mg Bisacodyl 10 mg, 1 No Longer [facility] supp, Route: Active 017 Medical MT, Drug Center form: SUPP, Daily, Dosing Weight 34.091, kg, PRN Constipation , Start date: 11/07/16 18:48:00 CDT, Duration: 30 day, Stop date: 12/07/16 18:47:00 CDTNotes: (Same As: Dulcolax, Bisco-Lax) Melatonin 3 mg, 1 tab, No Longer [facility] Route: PO, Active 017 Medical Drug form: Center TAB, Bedtime, Dosing Weight 34.091, kg, PRN Insomnia, Start date: 11/07/16 18:48:00 CDT, Duration: 30 day, Stop date: 12/07/16 18:47:00 CDTNotes: (Same as: Melatonin) Tramadol 50 mg, 1 No Longer [facility] tab, Route: Active 017 Medical PO, Drug Center form: TAB, Q6Hnow, Dosing Weight 34.091, kg, PRN Pain Score 4-6, Start date: 11/07/16 18:48:00 CDT, Duration: 30 day, Stop date: 12/07/16 18:47:00 CDTNotes: Not to exceed 400mg/day. (Same As: Ultram) Oxycodone 5 mg, 1 tab, No Longer [facility] Hydrochloride 5 Route: PO, Active 017 Medical MG Oral Tablet Drug form: Center TAB, Q4H, Dosing Weight 34.091, kg, PRN Pain Score 7-10, Start date: 11/07/16 18:48:00 CDT, Duration: 30 day, Stop date: 12/07/16 18:47:00 CDTNotes: (Same as: Roxicodone) Acetaminophen 650 mg, 2 No Longer [facility] tab, Route: Active 017 Medical PO, Drug Center form: TAB, Q6H, Dosing Weight 34.091, kg, PRN Pain 1-3/Temp > 100.4 F, Start date: 11/07/16 18:48:00 CDT, Duration: 30 day, Stop date: 12/07/16 18:47:00 CDTNotes: Do not exceed 4 gm/day. (Same as: Tylenol) Amlodipine 2.5 mg, PO, No Longer [facility] Daily, 0 Active 017 Medical Refill(s) Center Amlodipine 2.5 mg, 1 Inactive [facility] tab, Route: 017 Medical PO, Drug Center form: TAB, ONCE, Dosing Weight 34.091, kg, Start date: 11/07/16 15:29:00 CDT, Stop date: 11/07/16 15:29:00 CDTNotes: (Same as: Norvasc) Allergies, Adverse Reactions, Alerts Substance Category Reaction Severity Reaction Status Date Comments Source type Reported ferrous Assertion Drug Active [facility] sulfate [facility] meperidine Assertion Drug Active [facility] methadone Assertion Drug Active [facility] morphine Assertion Drug Active [facility] nefazodone Assertion Drug Active [facility] propoxyphene Assertion Drug Active [facility] traZODone Assertion Drug Active [facility] Immunizations No Data Provided for This Section Results Order Name Results Value Reference Date Interpretation Comments Source Range CHEM PANEL Vitamin D, 8.9 30.0 - 11/08 [facility] 25-OH, Total 100.0 [facility] PARATHYROID Ca Ion WB 1.12 . - 11/08 [facility] PROFILE . [facility] PARATHYROID Ca Norm WB 1.14 .11/08 [facility] . [facility] PARATHYROID PTH Intact 86.6 11.1 - 11/08 [facility] PROFILE 79.5 [facility] CHEM PANEL Phosphorus 2.9 2.5 - 4.5 11/08 [facility]2016 [facility] CHEM PANEL Magnesium Lvl 2.2 1.8 - 2.4 11/[address] ELECTROLYTES AGAP 14.7 10.0 - 11/08 [facility] 20.0 [facility] ELECTROLYTES CO2 25 24 - 32 11/[address] ELECTROLYTES Calcium Lvl 8.7 8.5 - 10.5 11/[address] ELECTROLYTES eGFR 56 11/08 Result [facility] Comment: The Medical eGFR is Center calculated using the CKD-EPI formula. In most young, healthy individuals the eGFR will be >90 mL/min/1.73m2 . The eGFR declines with age. An eGFR of 60-89 may be normal in some populations, particularly the elderly, for whom the CKD-EPI formula has not been extensively validated. Use of the eGFR is not recommended in the following populations:< br/>
Dennise viduals with unstable creatinine concentration s, including patients and those with serious co-morbid conditions.<b r/>
Patie nts with extremes in muscle mass or diet.

The data above are obtained from the National Kidney Disease Education Program (NKDEP) which additionally recommends that when the eGFR is used in patients with extremes of body mass index for purposes of drug dosing, the eGFR should be multiplied by the estimated BMI. ELECTROLYTES Potassium Lvl 3.7 3.5 - 5.1 11/[address] ELECTROLYTES BUN 25 7 - 22 11/[address] ELECTROLYTES Sodium Lvl 138 135 - 145 11/[address] ELECTROLYTES Creatinine 0.92 0.50 - 11/08 [facility] Lvl 1.40 [facility] ELECTROLYTES Glucose Lvl 90 70 - 99 11/[address] ELECTROLYTES Chloride Lvl 102 95 - 109 11/[address] HEMATOLOGY Lymphocytes # 1.5 1.0 - 5.5 11/[address] HEMATOLOGY Segs-Bands # 5.7 1.5 - 8.1 11/[address] HEMATOLOGY Segs 71.9 45.0 - 11/08 [place] 75.0 [facility] HEMATOLOGY Lymphocytes 18.4 20.0 - 11/08 [facility] 40.0 [facility] HEMATOLOGY Eosinophils 1.3 0.0 - 4.0 11/[address] HEMATOLOGY Monocytes 7.9 2.0 - 12.0 11/[address] HEMATOLOGY Basophils 0.5 0.0 - 1.0 11/[address] HEMATOLOGY Monocytes # 0.6 0.0 - 0.8 11/[address] HEMATOLOGY Eosinophils # 0.1 0.0 - 0.5 11/08 [facility] HEMATOLOGY WBC 8.0 3.7 - 10.4 11/08 [facility] HEMATOLOGY Hct 28.8 36.0 - 11/08 [facility] 48.0 [facility] HEMATOLOGY Hgb 10.1 12.0 - 11/08 [facility] 16.0 [facility] HEMATOLOGY MCV 87.3 80.0 - 11/08 [facility] 98.0 [facility] HEMATOLOGY MPV 8.3 7.4 - 10.4 11/08 [facility] HEMATOLOGY Platelet 215 133 - 450 11/08 [facility] HEMATOLOGY RDW 17.8 11.5 - 11/08 [facility] 14.5 [facility] HEMATOLOGY MCH 30.6 27.0 - 11/08 [facility] 31.0 [facility] HEMATOLOGY MCHC 35.1 32.0 - 11/08 [facility] 36.0 [facility] HEMATOLOGY RBC 3.30 4.20 - 11/08 [facility] 5.40 [facility] Pathology Reports No Data Provided for This Section Diagnostic Reports Report Value Date Source Spine thoracolumbar 2 EXAM: XR THORACOLUMBAR SPINE 2 VIEWS 11/08/2016 [facility] Medical views DX DATE: 11/08/2016 4:36 AM CDT Center INDICATION: - upright views without brace COMPARISON: CT thoracic spine 11/07/2016 TECHNIQUE: AP and lateral radiographs of the thoracolumbar junction, shows from T1 to L5. FINDINGS: Chronic T12 vertebral plana deformity is again seen, with a proximally 4 to 5 mm retropulsion of the vertebral body into the spinal canal. This results in mild spinal canal stenosis. Mild supe rior endplate depression deformities of T5 and T6 are redemonstrated without significant loss of vertebral body height. Subtle L1 superior endplate compression deformity is better appreciated on compari son lumbar spine CT. No interval loss of vertebral body height or change in spinal alignment. IMPRESSION: 1. No interval loss of vertebral body height or change in spinal alignment. 2. Unchanged chronic T12 vertebral plana deformity with small amount of retropulsion into the spinal canal. 3. Unchanged superior endplate compression deformities of T5 and T6. 4. Subtle L1 superior endplate compression deformity is better appreciated on comparison lumbar spine CT. UT SECTION: ER Spine thoracic wo EXAM: CT CERVICAL SPINE WITHOUT CONTRAST 11/07/2016 [facility] Medical contrast CT EXAM: CT THORACIC SPINE WITHOUT CONTRAST Center DATE: 11/07/2016 4:21 PM CDT INDICATION: Pain Post Trauma - trauma COMPARISON: None TECHNIQUE: Volumetric acquisition of the cervical spine and thoracic without contrast. Axial, sagittal and coronal reconstructions. IV contrast: None. DLP: 1005 mGy-cm UT SECTION: ER FINDINGS: The spine is imaged from the skull base to the level of T2. CERVICAL SPINE: There is mild retrolisthesis C4 over C5 which is chronic and is likely degenerative. Rest of the alignment is normal. No acute cervical spine fracture. There is mild right C3-C4 moderate left C5-C6 facet arthropathy. Pre and paravertebral soft tissues are within normal limits. Note made of opacification of right sphenoid sinus. THORACIC SPINE: There is chronic severe T12 vertebral compression deformity with greater than 90% height loss of the vertebra centrally representing vertebra plana. There is retropulsion of the vertebra into the spinal canal by about 5 mm causing severe spinal canal stenosis and cord compression. There are mild chronic appearing superior endplate compression deformities of T5, T6 vertebral bodies without significant height loss or retropulsion. No other acute thoracic spinal fractures. There is a subtle superior endplate compression fracture of L1 which is partially visualized and will be described on the lumbar spine CT. The pre and paravertebral soft tissues are within normal limits . Multiple hypodense lesions are noted within the liver, incompletely evaluated and characterized. Note made of cardiomegaly and mitral annular calcifications. IMPRESSION: 1. Chronic severe T12 vertebral compression [...] protocol CT/magnetic resonance imaging for further evaluation. Spine cervical wo EXAM: CT CERVICAL SPINE WITHOUT CONTRAST 11/07/2016 [facility] Medical contrast CT EXAM: CT THORACIC SPINE WITHOUT CONTRAST Center DATE: 11/07/2016 4:21 PM CDT INDICATION: Pain Post Trauma - trauma COMPARISON: None TECHNIQUE: Volumetric acquisition of the cervical spine and thoracic without contrast. Axial, sagittal and coronal reconstructions. IV contrast: None. DLP: 1005 mGy-cm UT SECTION: ER FINDINGS: The spine is imaged from the skull base to the level of T2. CERVICAL SPINE: There is mild retrolisthesis C4 over C5 which is chronic and is likely degenerative. Rest of the alignment is normal. No acute cervical spine fracture. There is mild right C3-C4 moderate left C5-C6 facet arthropathy. Pre and paravertebral soft tissues are within normal limits. Note made of opacification of right sphenoid sinus. THORACIC SPINE: There is chronic severe T12 vertebral compression deformity with greater than 90% height loss of the vertebra centrally representing vertebra plana. There is retropulsion of the vertebra into the spinal canal by about 5 mm causing severe spinal canal stenosis and cord compression. There are mild chronic appearing superior endplate compression deformities of T5, T6 vertebral bodies without significant height loss or retropulsion. No other acute thoracic spinal fractures. There is a subtle superior endplate compression fracture of L1 which is partially visualized and will be described on the lumbar spine CT. The pre and paravertebral soft tissues are within normal limits . Multiple hypodense lesions are noted within the liver, incompletely evaluated and characterized. Note made of cardiomegaly and mitral annular calcifications. IMPRESSION: 1. Chronic severe T12 vertebral compression [...] protocol CT/magnetic resonance imaging for further evaluation. Brain wo contrast CT CT HEAD WITHOUT CONTRAST 11/07/2016 [facility] DATE: 11/07/2016 at 5:11 PM. Center COMPARISON: None. HISTORY: - s/p fall 1 week ago. TECHNIQUE: Contiguous axial images of the brain were obtained without intravenous contrast administration. Sagittal and coronal reformats were also provided. DLP: 644.7 mGy-cm. FINDINGS: Old lacunae are noted within the left caudate head and left putamen. There are no acute hemorrhages or acute infarcts. The morris-white interfaces are otherwise well defined. Low density is noted within the periventricular white matter consistent with chronic small vessel ischemic disease. There is prominence of the cortical sulci , fissures, cisterns and ventricles consisten t with cortical atrophy appropriate for the patient's stated age of 86 years. A prosthetic lens is noted within the right globe. There are no acute bony abnormalities. The calvarium is intact. Atherosclerotic calcification is noted within the talbot of the bilateral cavernous internal carotid arteries. There is mucosal thickening and soft tissue opacification of the right sphenoid sinus. IMPRESSION: 1. No acute intracranial abnormality. 2. Age related volume loss. 3. White matter hypodensity consistent with chronic small vessel ischemic disease. 4. Right sphenoid sinusitis. Resident preliminary report by Rah Turner: No acute intracranial hemorrhage. There is diffuse cerebral volume loss with chronic microvascular ischemic changes. UT SECTION: Neuro Forearm 2 views DX EXAM: XR RIGHT FOREARM 2 VIEWS 11/07/2016 [facility] DATE: 11/07/2016 3:15 PM CDT Center INDICATION: Pain, post fall COMPARISON: None. TECHNIQUE: AP and lateral radiographs of the forearm UT SECTION: ER FINDINGS: There is soft tissue swelling of the distal arm/elbow/proximal forearm. Diffuse osteopenia is noted. Alignment of bones is normal. No acute fracture or malalignment. IMPRESSION: 1. Soft tissue swelling of the distal arm/elbow/proximal forearm without underlying acute osseous abnormality. 2. Diffuse osteopenia. Chest 1view DX EXAM: XR CHEST 1 VIEW 11/07/2016 [facility] DATE: 11/07/2016 3:34 PM CDT Center INDICATION: Pain, trauma COMPARISON: None. TECHNIQUE: AP chest UT SECTION: ER FINDINGS: Lines, tubes and hardware: Multiple surgical clips overlie the right lateral hemithorax and right axilla. Lungs and pleura: There is patchy bibasilar subsegmental atelectasis. No pleural effusion or pneumothorax. Heart and mediastinum: Cardiomegaly. Tortuous aorta with aortic arch calcifications. Note made of mitral annular calcification. Bones: Fractures of lateral left 4-6 ribs are likely chronic. No other osseous abnormality. IMPRESSION: 1. Immediately and tortuous aorta. 2. Lateral left 4th-6th rib fractures are likely chronic. However, please correlate with focal tenderness. Shoulder series DX EXAM: XR RIGHT SHOULDER 3 VIEWS 11/07/2016 [facility] DATE: 11/07/2016 3:15 PM CDT Center INDICATION: Pain, post fall COMPARISON: None. TECHNIQUE: AP views in internal and external rotation, and an axillary view of the shoulder UT SECTION: ER FINDINGS: There is a mildly comminuted proximal right humeral fracture with a transverse minimally displaced and impacted fracture component extending through the surgical neck of the humerus and sagitt al oblique fracture extending through the greater tuberosity. The greater tuberosity is mildly displaced laterally. A linear bony fragment is noted projecting medially from the surgical neck measuring a bout a centimeter in length. Alignment of the glenohumeral joint is normal. Acromio clavicular joint is intact. There is mild right shoulder soft tissue swelling. Multiple surgical clips overlie the right lateral hemithorax and axilla. IMPRESSION: 1. Mildly comminuted proximal right humeral fracture with fractures through the surgical neck and greater tuberosity. Alignment of the glenohumeral joint is normal. Spine-Outside Consult CT Addendum: Note made of chronic bilateral L5 pars defects. 11/07/2016 [facility] EXAM: CT LUMBAR SPINE WITHOUT CONTRAST Center DATE: 11/07/2016 3:08 PM CDT INDICATION: Request for reinterpretation of outside facility study COMPARISON: None TECHNIQUE: Volumetric acquisition of the lumbar spine without contrast. Axial, sagittal and coronal reconstructions. IV contrast: None. DLP: mGy-cm FINDINGS: There is chronic severe T12 vertebral compression deformity resulting in greater than 90% height loss centrally, vertebra plana. There is retropulsion of the vertebral body by about 5 mm into the spinal canal causing severe spinal canal stenosis and cord compression. There is acute superior endplate compression fracture of L1 vertebra without significant height loss or retropulsion. No other acute fracture. Note made of mild degenerative changes of the lumbar spine with L3-L4 degenerative disc disease resulting in mild disc height loss along with vacuum disc phenomenon. The pre and paravertebral soft tissues are within normal limits. IMPRESSION: 1. Acute superior endplate compression fracture [...] lumbar spine with L3-L4 degenerative disc disease. Consultation Notes No Data Provided for This Section Discharge Summaries No Data Provided for This Section History and Physicals No Data Provided for This Section Vital Signs Vital Sign Value Date Comments Source Respitory Rate 18 11/11/2016 [facility] Systolic (mm Hg) 132 11/11/2016 [facility] Diastolic (mm Hg) 68 11/11/2016 [facility] Temperature Oral (F) 97.9 F 11/11/2016 [facility] Heart Rate 79 11/11/2016 [facility] Respitory Rate 18 11/11/2016 [facility] Systolic (mm Hg) 114 11/11/2016 [facility] Diastolic (mm Hg) 67 11/11/2016 [facility] Heart Rate 86 11/11/2016 [facility] Temperature Oral (F) 97.7 F 11/11/2016 [facility] Temperature Oral (F) 97.7 F 11/11/2016 [facility] Systolic (mm Hg) 116 11/11/2016 [facility] Diastolic (mm Hg) 67 11/11/2016 [facility] Respitory Rate 20 11/11/2016 [facility] Heart Rate 82 11/11/2016 [facility] BMI Calculated 14.78 11/08/2016 [facility] Weight 33.182 11/08/2016 [facility] Height 149.86 cm 11/08/2016 [facility] Weight 34.091 11/07/2016 [facility] Height 147.32 cm 11/20/2012 [facility] Weight 43.636 11/20/2012 [facility] Encounters Location Location Encounter Encounter Reason Attending ADM DC Status Source Details Type Number For Provider Date Date Visit [facility] Outpatient [id number] SYNCOPE SHYAM 11/20 11/20 Active [facility] /2012 [facility] [id number] [place] 11/07 11/11 [facility] [place] [facility] [id number] SYNCOPE SHYAM Cancel [facility] Procedures Procedure Code Date Perfomer Comments Source Closure of [id number] 02/29/1968 [facility] gastric ulcer [facility] Assessment and Plan Assessment and Plan Date Source Extracted from:Title: Progress Note 11/11/2016 [facility] Author: Pat Lopes MD Date: 11/10/16 Assessment/Plan [...] sling for immobilization. f/u w Dr. Flanagan [phone] to schedule appointment on 11/18. 3.Severe malnutrition encourage po intake. cont calcium carbonate 600 mg/vitamin D3 BID. ergocalciferol 50K weekly x 12 weeks. call [phone] to schedule appointment with [place] [facility] with Dr. Chapin lewis 3-4 weeks for further osteoporosis evaluation. 4.HTN (hypertension) pt expressing orthostatic symptoms. d/c amlodipine 10 mg daily. 5.GERD (gastroesophageal reflux disease) cont protonix. 6.Acute pain tylenol and tramadol prn. bm regimen. 7.Breast ca currently in remission. will defer to OP oncologist. Prophylaxis lovenox Disposition home with home PT/OT pending PT clearance. Extracted from:Title: Bone [facility] Author: Margareth Batista Date: 11/08/16 [...] as a transfer from an OSH in [place] on 11/07/16. The history is obtained from the patient, her son, and through chart review. She reportedly was at home and fell on , 11/04/16, when she trippe d over her dog in the middle of the night. She fell onto her R shoulder and had immediate pain so went to the local ED in [place]. She was given a cuff and collar sling for the humerus fracture and sent home. She then returned to the ED on 11/07/16 for persistant pain and was noted at that time to also have the T12 and L1 VCF so was transferred to [facility]. Previous history of fracture: Denies Family history [...] primary. Follow up in [facility] ([phone]) or with PCP, Dr. Chapin Ambriz, in [place] as outpatient 3-4 weeks after discharge. Please call [phone] with any questions or concerns. Margareth Batista PA-C [employer] Numer[employer] Machine Tool Operator Addendum by Margareth Batista on 11/09/2016 15:21 [facility] labs reviewed: 1. Vitamin D deficiency: 8.9 - Will add ergocalciferol 50,000 IU weekly x 12 weeks 2. Hyperparathyroidism: 86.6 - likely secondary due to vitamin D deficiency Patient will need the following as outpatient for additional bone health work up: 1. DXA 2. Labs: BSAP, NTx, TSH, T4 3. Repeat Vitamin D level and PTH in 3 months Extracted from:Title: History and Physical Author: Vladimir Ruffin MD [...] therapy evaluation Hospitalist is primary please page [phone] Plan of Care No Data Provided for This Section Social History Social History Date Source Social History TypeResponse 11/08/2016 [facility] Smoking Status Never smoker; Exposure to Tobacco Smoke None; Cigarette Smoking Last 365 Days No; Reg Smoking Cessation Counseling No Family History No Data Provided for This Section Advance Directives No Data Provided for This Section Functional Status No Data Provided for This Section
[2018-09-13 11:10] LABS: Absolute Lymphocytes (CBC) 1.3 K/uL (0.7-4.9); Basophils % 0.8 % (0-1.3); Eosinophils % 2.2 % (0-4.4); Lymphocytes % 15.7 % (15.3-44.8); MPV 7.2 fL (7.6-11.3); Monocytes % 6.6 % (3.3-12.3); RBC Red Blood Cell Count 4.49 M/uL (3.86-4.86)
[2018-09-13] MEDS ORDERED: NA CHLORIDE 0.9% 1,000 ML ONE (11:25)
[2018-09-13] MEDS ORDERED: ONDANSETRON 4 MG/2 ML VIAL ONE (11:25)
[2018-09-13 11:33] LABS: Anisocytosis 3+; Blood Morphology Comment NOTED (NOT SEEN); Elliptocytes 1+; Platelet Estimate ADEQ; Urine White Blood Cell Casts OK
[2018-09-13 11:40] LABS: ALT/SGPT 20 U/L (12-78); AST/SGOT 25 U/L (15-37); Albumin 3.1 g/dL (3.4-5.0); Alkaline Phosphatase 119 U/L (45-117); BUN Blood Urea Nitrogen 25 mg/dL (7-18); Bicarbonate 21 mmol/L (21-32); Bilirubin Direct 0.1 mg/dL (0-0.2); Bilirubin Total 0.2 mg/dL (0.2-1.0); Glucose Level 119 mg/dL (74-106); Lipase 75 U/L (73-393); Potassium 3.8 mmol/L (3.5-5.1); Protein, Total 7.4 g/dL (6.4-8.2); Sodium Level 143 mmol/L (136-145); Troponin (Emerg Dept Use Only) < 0.02 ng/mL (0.0-0.045)
[2018-09-13 12:09] LABS: Urine Bacteria 20-50 /HPF (<20); Urine RBC NONE SEEN /HPF (NONE SEEN)
[2018-09-13 12:10] LABS: Urine Culture Reflex Order NOT NEEDED
--- NOTE | 2018-09-13 12:23 | RAD REPORT ---
EXAM DESCRIPTION: CTAbdomen Pelvis W Contrast - 09/13/2018 12:11 pm CLINICAL HISTORY: Abdominal pain. ABD PAIN COMPARISON: Chest Abdomen Pelvis W Cont dated 05/28/2017; Head C Spine Mpr Wo Con dated 05/27/2017 TECHNIQUE: Biphasic CT imaging of the abdomen and pelvis was performed with 100 ml non-ionic IV cont rast. All CT scans are performed using dose optimization technique as appropriate and may include automated exposure control or mA/KV adjustment according to patient size. FINDINGS: The lung bases are clear. The liver contains multiple hypodense lesions compatible with cysts appearing unchanged since compara tive study. No aggressive liver lesion or biliary dilatation suspected. The gallbladder appears surgi judie absent. The spleen, pancreas, adrenal glands and kidneys are within normal limits. No bowel obstruction, free air, free fluid or abscess. Sigmoid diverticulosis coli is present. There is a prominent amount stool retained in the rectosigmoid colon. The appendix is not identified as a d iscrete structure, however, no secondary findings of appendicitis are identified. No evidence of si gnificant lymphadenopathy. No suspicious bony findings. IMPRESSION: Prominent retained stool in the rectosigmoid colon. Elsewhere, no acute abnormality is discerned.
[2018-09-13 13:12] LABS: Urine Blood NEGATIVE (NEG); Urine Glucose NEGATIVE (NEG); Urine Protein 1+ (NEG); Urine Specific Gravity 1.025 (1.005-1.030); Urine pH 5.5 (5.0-7.0)
--- NOTE | 2018-09-13 13:17 | ER ---
Nurse's Notes [facility] [place] Name: Salud Hooks Age: 88 yrs Sex: Female : 1930 Arrival Date: 09/13/2018 Time: 10:01 Bed 6 Private MD: Diagnosis: Constipation, unspecified;Dehydration;Urinary tract infection, site not specified Presentation: 09/13 10:06 Presenting complaint: EMS states: At cancer center, became pale, cool and diaphoretic, ph c/o nausea, BP 80s systolic, no meds given. Transition of care: patient was not received from another setting of care. Onset of symptoms was September 13, 2018. Risk Assessment: Do you want to hurt yourself or someone else? Patient reports no desire to harm self or others. Initial Sepsis Screen: Does the patient meet any 2 criteria? HR > 90 bpm. Does the patient have a suspected source of infection? No. Patient's initial sepsis screen is negative. Care prior to arrival: IV initiated. 22 GA, in the left hand. 10:06 Method Of Arrival: EMS: [facility] ph 10:06 Acuity: KODAK 3 ph Historical: - Allergies: 10:10 Ferrous Sulfate; ph 10:10 Nefazodone; ph 10:10 Opioids - Morphine Analogues; ph 10:10 Opioids-Meperidine \T\ Related; ph 10:10 Opioids-Methadone \T\ Related; ph 10:10 Propoxyphene HCl; ph 10:10 Trazodone; ph - PMHx: 10:10 Cancer, Breast; GERD; Hypertension; Hypothyroidism; ph - Immunization history:: Adult Immunizations unknown. - Social history:: Smoking status: Patient/guardian denies using tobacco. - Ebola Screening: : No symptoms or risks identified at this time. - Family history:: not pertinent. - Hospitalizations: : No recent hospitalization is reported. - History obtained from: EMS. Screenin:59 Abuse screen: Denies threats or abuse. Denies injuries from another. Nutritional ph screening: No deficits noted. Tuberculosis screening: No symptoms or risk factors identified. Fall Risk No fall in past 12 months (0 pts). No secondary diagnosis (0 pts). IV access (20 points). Ambulatory Aid- None/Bed Rest/Nurse Assist (0 pts). Gait- Weak (10 pts.). Mental Status- Overestimates/Forgets Limitations (15 pts.). Total Gutierrez Fall Scale indicates High Risk Score (45 or more points). Fall prevention measures have been instituted. Side Rails Up X 2 Placed Close to Nursing Station Frequent Obs/Assessments Occuring Family Present and informed to notify staff if the need to leave the bedside As available patient and family educated on Fall Prevention Program and Strategies. Assessment: 11:00 General: Appears in no apparent distress. comfortable, slender, well groomed, Behavior ph is calm, cooperative, appropriate for age, Denies fever, feeling ill. Pain: Complains of pain in right upper quadrant. Neuro: Level of Consciousness is awake, alert, obeys commands, Oriented to person, place. Cardiovascular: Capillary refill < 3 seconds in bilateral fingers Patient's skin is warm and dry. Respiratory: Airway is patent Respiratory effort is even, unlabored, Respiratory pattern is regular, symmetrical. GI: Reports upper abdominal pain, nausea, Patient currently denies diarrhea, vomiting. Derm: Skin is intact, is fragile, is thin, Skin is pink, warm \T\ dry. Musculoskeletal: Circulation, motion, and sensation intact. Range of motion: intact in all extremities. 11:33 Reassessment: Patient appears in no apparent distress at this time. Patient and/or ph family updated on plan of care and expected duration. Pain level reassessed. Pt assisted onto bedpan, urine sample obtained, pt reports that RUQ pain has resolved, denies nausea a t this time, VSS. 11:50 Reassessment: Pt taken to CT via stretcher. ph 13:36 Reassessment: Patient appears in no apparent distress at this time. Patient and/or ph family updated on plan of care and expected duration. Pain level reassessed. Report called to Fer YE at [facility], pt transported back to facility by POV. Vital Signs: 10:08 BP 96 / 65; Pulse 95; Resp 18; Temp 97.2; Pulse Ox 96% on R/A; Weight 43.09 kg; ph 11:15 BP 121 / 60; Pulse 93; Resp 18; Pulse Ox 97% on R/A; Pain 0/10; ph 12:30 BP 105 / 64; Pulse 94; Resp 16; Pulse Ox 98% on R/A; ph 13:37 BP 115 / 78; Pulse 91; Resp 18; Temp 97.8; Pulse Ox 97% on R/A; Pain 0/10; ph ED Course: 10:01 Patient arrived in ED. em1 10:04 Aleksandr Victor MD is Attending Physician. rn 10:05 Xiomara Young, RN is Primary Nurse. ph 10:08 Triage completed. ph 10:11 Arm band placed on Patient placed in an exam room, on a stretcher, on lunchroom monitor, ph on pulse oximetry. 10:50 Inserted saline lock: 22 gauge in left forearm, using aseptic technique. Blood ph collected. 11:00 Patient has correct armband on for positive identification. Placed in gown. Bed in low ph position. Call light in reach. Side rails up X2. Pulse ox on. NIBP on. Door closed. Noise minimized. Warm blanket given. Head of bed elevated. 12:13 CT Abd/Pelvis - IV Contrast Only In Process Unspecified. EDMS 13:37 No provider procedures requiring assistance completed. IV discontinued, intact, ph bleeding controlled, No redness/swelling at site. Pressure dressing applied. Administered Medications: 11:32 Drug: NS 0.9% 1000 ml Route: IV; Rate: 1000 ml; Site: left forearm; ph 13:45 Follow up: Response: No adverse reaction; IV Status: Completed infusion; IV Intake: ph 1000ml 11:33 Drug: Zofran 4 mg Route: IVP; Site: left antecubital; ph 12:00 Follow up: Response: No adverse reaction hb 13:35 Drug: Macrobid 100 mg Route: PO; ph 13:46 Follow up: Response: No adverse reaction ph Intake: 13:45 IV: 1000ml; Total: 1000ml. ph Outcome: 13:15 Discharge ordered by . rn 13:40 Discharged to assisted. Report called to Fer YE ph 13:40 Condition: good 13:40 Discharge instructions given to assisted, Instructed on discharge instructions, follow up and referral plans. medication usage, Prescriptions given X 1. 13:46 Patient left the ED. ph Signatures: Dispatcher [employer] EDMS Aleksandr Victor MD MD rn Martinez, Eric em1 Xiomara Young, CHHAYA RN ph Darcy Cote RN RN hb
--- NOTE | 2018-09-13 13:17 | EDPHYS ---
Physician Documentation [facility] Name: Salud Hooks Age: 88 yrs Sex: Female : 1930 Arrival Date: 09/13/2018 Time: 10:01 Bed 6 Private MD: ED Physician Aleksandr Victor HPI: 09/13 10:19 This 88 yrs old Female presents to ER via EMS with complaints of low blood rn pressure. 10:19 Per EMS report, sent from jail for low blood pressure, had reported early was rn having nausea and abd pain, but denies to me. She states feels fine other than "being crazy". Denies focal neuro complaint, no chest pain/sob/abd pain/vomiting/diarrhea. NO blood in stools. . Onset: The symptoms/episode began/occurred at an unknown time. Severity of symptoms: At their worst the symptoms were mild in the emergency department the symptoms have improved. It is unknown whether or not the patient has had similar symptoms in the past. The patient has not recently seen a physician. Historical: - Allergies: 10:10 Ferrous Sulfate; ph 10:10 Nefazodone; ph 10:10 Opioids - Morphine Analogues; ph 10:10 Opioids-Meperidine \\T\\ Related; ph 10:10 Opioids-Methadone \\T\\ Related; ph 10:10 Propoxyphene HCl; ph 10:10 Trazodone; ph - PMHx: 10:10 Cancer, Breast; GERD; Hypertension; Hypothyroidism; ph - Immunization history:: Adult Immunizations unknown. - Social history:: Smoking status: Patient/guardian denies using tobacco. - Ebola Screening: : No symptoms or risks identified at this time. - Family history:: not pertinent. - Hospitalizations: : No recent hospitalization is reported. - History obtained from: EMS. ROS: 10:19 Constitutional: Negative for fever, chills, and weight loss, Eyes: Negative for injury, rn pain, redness, and discharge, Neck: Negative for injury, pain, and swelling, Cardiovascular: Negative for chest pain, palpitations, and edema, Respiratory: Negative for shortness of breath, cough, wheezing, and pleuritic chest pain, Abdomen/GI: Negative for abdominal pain, nausea, vomiting, diarrhea, and constipation, MS/Extremity: Negative for injury and deformity, Skin: Negative for injury, rash, and discoloration, Neuro: Negative for headache, weakness, numbness, tingling, and seizure. Exam: 10:19 Constitutional: This is a well developed, well nourished patient who is awake, alert, rn and in no acute distress. Head/Face: Normocephalic, atraumatic. Eyes: Pupils equal round and reactive to light, extra-ocular motions intact. Lids and lashes normal. Conjunctiva and sclera are non-icteric and not injected. Cornea within normal limits. Periorbital areas with no swelling, redness, or edema. ENT: MMM Cardiovascular: Regular rate and rhythm. + loud systolic murmur. No pulse deficits. Respiratory: Lungs have equal breath sounds bilaterally, clear to auscultation. No increased work of breathing, no retractions or nasal flaring. Abdomen/GI: soft, non-tender MS/ Extremity: Pulses equal, no cyanosis. Neurovascular intact. Full, normal range of motion. Equal circumference. Neuro: Awake and alert, GCS 15, oriented to person, situation, not place (thinks is [place]). Cranial nerves II-XII grossly intact. Motor strength 5/5 in all extremities. Sensory grossly intact. Cerebellar exam normal. Vital Signs: 10:08 BP 96 / 65; Pulse 95; Resp 18; Temp 97.2; Pulse Ox 96% on R/A; Weight 43.09 kg; ph 11:15 BP 121 / 60; Pulse 93; Resp 18; Pulse Ox 97% on R/A; Pain 0/10; ph 12:30 BP 105 / 64; Pulse 94; Resp 16; Pulse Ox 98% on R/A; ph 13:37 BP 115 / 78; Pulse 91; Resp 18; Temp 97.8; Pulse Ox 97% on R/A; Pain 0/10; ph MDM: 10:04 Patient medically screened. rn 13:12 Differential Diagnosis constipation, UTI, dehydration. Data reviewed: vital signs, rn nurses notes, lab test result(s), radiologic studies, CT scan, and as a result, I will discharge patient. Counseling: I had a detailed discussion with the patient and/or guardian regarding: the historical points, exam findings, and any diagnostic results supporting the discharge/admit diagnosis, lab results, radiology results, the need for outpatient follow up, to return to the emergency department if symptoms worsen or persist or if there are any questions or concerns that arise at home. Response to treatment: the patient's symptoms have markedly improved after treatment, and as a result, I will discharge patient. Special discussion: I discussed with the patient/guardian in detail that at this point there is no indication for admission to the hospital. It is understood, however, that if the symptoms persist or worsen the patient needs to return immediately for re-evaluation. 13:12 ED course: Pt asymptomatic, ct shows constipation, no obstruction of impaction, + rn dehydration and UTI, will dc home with abx for UTI and rehydration.BP now normalized. Procal neg.. 09/13 10:06 Order name: Basic Metabolic Panel; Complete Time: 13: rn 09/13 10:06 Order name: CBC with Diff; Complete Time: 13: rn 09/13 10:06 Order name: Creatinine for Radiology; Complete Time: 13: rn 09/13 10:06 Order name: Hepatic Function; Complete Time: 13: rn 09/13 10:06 Order name: Lipase; Complete Time: 13: rn 09/13 10:07 Order name: Troponin (emerg Dept Use Only); Complete Time: 13:13 rn 09/13 10:07 Order name: Urine Culture rn 09/13 10:07 Order name: Urine Microscopic Only; Complete Time: 13:13 rn 09/13 10:07 Order name: Lactate; Complete Time: 13:13 rn 09/13 10:09 Order name: CT Abd/Pelvis - IV Contrast Only; Complete Time: 13:13 rn 09/13 10:09 Order name: Blood Culture Adult (2) rn 09/13 10:09 Order name: Procalcitonin; Complete Time: 13:13 rn 09/13 11:15 Order name: CBC Smear Scan; Complete Time: 13:13 EDMS 09/13 11:43 Order name: Urine Dipstick--Ancillary (enter results); Complete Time: 13:13 bd 09/13 10:06 Order name: IV Saline Lock; Complete Time: 11: rn 09/13 10:06 Order name: Labs collected and sent; Complete Time: 11: rn 09/13 10:06 Order name: EKG; Complete Time: 10:08 rn 09/13 10:06 Order name: EKG - Nurse/Tech rn 09/13 10:07 Order name: Urine Dipstick-Ancillary (obtain specimen); Complete Time: 11:33 rn Administered Medications: 11:32 Drug: NS 0.9% 1000 ml Route: IV; Rate: 1000 ml; Site: left forearm; ph 13:45 Follow up: Response: No adverse reaction; IV Status: Completed infusion; IV Intake: ph 1000ml 11:33 Drug: Zofran 4 mg Route: IVP; Site: left antecubital; ph 12:00 Follow up: Response: No adverse reaction hb 13:35 Drug: Macrobid 100 mg Route: PO; ph 13:46 Follow up: Response: No adverse reaction ph Disposition: 09/13/18 13:15 Discharged to Home. Impression: Constipation, unspecified, Dehydration, Urinary tract infection, site not specified. - Condition is Stable. - Discharge Instructions: Constipation, Adult, Dehydration, Adult, Urinary Tract Infection, Adult. - Prescriptions for Macrobid 100 mg Oral Capsule - take 1 capsule by ORAL route every 12 hours for 7 days; 14 capsule. - Medication Reconciliation Form, Thank You Letter, Antibiotic Education, Prescription Opioid Use form. - Follow up: Private Physician; When: As needed; Reason: Recheck today's complaints, Re-evaluation by your physician. - Problem is new. - Symptoms have improved. Signatures: Dispatcher [employer] Carina Red RN RN iw Nieto, Roman, MD MD rn Hall, Patricia, RN RN ph Baxter, Heather RN Corrections: (The following items were deleted from the chart) 13:46 13:15 09/13/2018 13:15 Discharged to Home. Impression: Constipation, unspecified; ph Dehydration; Urinary tract infection, site not specified. Condition is Stable. Forms are Medication Reconciliation Form, Thank You Letter, Antibiotic Education, Prescription Opioid Use. Follow up: Private Physician; When: As needed; Reason: Recheck today's complaints, Re-evaluation by your physician. Problem is new. Symptoms have improved. rn
[2018-09-13] MEDS ORDERED: NITROFURAN MACRO 100 MG CAP PO ONE (13:27)
[2018-09-13 15:27] VITALS: BP 115/78; TEMP 97.8; O2SAT 97
--- NOTE | 2018-09-14 07:22 | EKG ---
Test Date: 2018-09-13 Test Time: 12:08:40 Still Operator Brandy: PARKER MEASUREMENT RESULTS: Intervals: Rate: 107 MN: 178 QRSD: 84 QT: 360 QTc: 480 [place]: P: 65 MN: 178 QRS: 19 T: 144 INTERPRETIVE STATEMENTS: Sinus tachycardia Marked ST abnormality, possible inferolateral subendocardial injury Abnormal ECG Compared to ECG 05/27/2017 09:40:19 ST (T wave) deviation now present Sinus rhythm no longer present Left ventricular hypertrophy no longer present Early repolarization no longer present Electronically Signed On 09-14-18 07:20:43 CDT by Amauri Moralez
== END 2018-09-13 13:46 | disposition home or self-care (01) ==
LOC: ER 09:50
DX: E86.0 Dehydration (principal); N39.0 Urinary tract infection, site not specified; I10 Essential (primary) hypertension; Z85.3 Personal history of malignant neoplasm of breast; Z88.5 Allergy status to narcotic agent; Z88.8 Allergy status to other drugs, medicaments and biological substances
CPT/HCPCS: 93005; 87040 ×2; 87088; 85025; 87086; 80048; 36415; 80076; 83605; 84484; 83690; 84145; 74177; Q9967; J7030; J2405; 81003; 81015; 99284